=== PATIENT | female | born 1930 | race Caucasian/White ===

== ENCOUNTER 2017-05-12 23:20 | Inpatient (IN) | payer MEDICARE ==
[~2017-05-12] VITALS: Ht 144.8 cm; Wt 50.0 kg
[~2017-05-12 23:20] MED LIST: ACET325 PO; COMMODE 3:1; DOCU1CAP39 PO; ENOX40P SQ; FURO20 PO; MVI PO; POLY17S PO; TIMO.5%O LEFT EYE; WALKER ROLLING; WHEELCHAIR RENTAL RA
[2017-05-12] MEDS ORDERED: ONDANSETRON HCL 4 MG/2 ML VIAL IV PUSH ONE (23:30)
[2017-05-12 23:35] VITALS: BP 148/67; PULSE 68; RESP 17; TEMP 97.3; O2SAT 99
[2017-05-12] MEDS ORDERED: SODIUM CHLORIDE 0.9% FLUSH 10 ML FLUSH IVF PRN (23:45)
[2017-05-12] MEDS ORDERED: ONDANSETRON HCL 4 MG/2 ML VIAL IVP ONE (23:45)
[2017-05-12 23:48] VITALS: BP 146/61; PULSE 71; RESP 16; O2SAT 99
[2017-05-13] VITALS (8 sets, daily range): BP systolic 93–130; BP diastolic 57–65; PULSE 72–105; RESP 12–20; TEMP 96.1–97.6; O2SAT 98–100
[2017-05-13] LABS: BASOPHIL % 0.4 % (0.0-2.0); EOSINOPHIL # 0.2 TH/MM3 (0-0.4); EOSINOPHIL % 1.8 % (0.0-4.0); HEMO FLAGS DIFF FINAL; LYMPH % 19.9 % (9.0-44.0); MONO % 7.3 % (0.0-8.0); NEUT % 70.6 % (16.0-70.0); PLATELET COUNT 244 TH/MM3 (150-450); RED BLOOD COUNT 3.84 MIL/MM3 (4.00-5.30); WHITE BLOOD COUNT 9.9 TH/MM3 (4.0-11.0)
--- NOTE | 2017-05-13 00:04 | PD ---
HPI Chief Complaint: Fall Time Seen by Provider: 23:29 Travel History International Travel<30 days: No Contact w/Intl Traveler<30days: No Traveled to known affect area: No History of Present Illness HPI 86-year-old female presents to the emergency department by EMS transport from home after witnessed non-syncopal trip and fall just prior to arrival to the emergency department. Patient was at home getting out of her recliner chair to go the bathroom her daughter was at her side the patient had a trip and fall landing on her right hip. Patient's had previous left hip replacement. Patient complains of right hip pain. Patient is noted to have some soft tissue swelling and mild deformity of the right hip. There is no femur deformity involving the shaft of the femur or any swelling or tenderness noted at the knee. Patient states that she did not hit her head did not have loss of consciousness denies neck pain denies chest pain denies shortness of breath denies abdominal pain denies back pain denies arm pain. Patient is not certain of the details of her fall. Patient did receive morphine sulfate en route from the home to the hospital 4 mg IV 2 doses. Patient continues to complain of severe pain and received the final 2 mg dose of morphine sulfate IV by EMS in the exam room. Patient does complain of some nausea. She denies other concerns or complaints. Patient is not able to quantitate her pain. [facility] Past Medical History Narrative Medical Endometrial cancer left hip fracture with ORIF 2014 Dr Truong repair hysterectomy no tobacco use no alcohol use nursing notes reviewed Arthritis: No Asthma: No Autoimmune Disease: No Anxiety: No Depression: No Heart Rhythm Problems: No Cancer: Yes (endometrial) Cardiovascular Problems: No High Cholesterol: No Chemotherapy: No Chest Pain: No Congestive Heart Failure: No COPD: No Cerebrovascular Accident: No Diabetes: No Diminished Hearing: No Endocrine: No GERD: No Genitourinary: No Headaches: No Hiatal Hernia: No Immune Disorder: No Kidney Stones: No Musculoskeletal: Yes Neurologic: No Psychiatric: No Reproductive: Yes Respiratory: No Migraines: No Radiation Therapy: No Renal Failure: No Seizures: No Sickle Cell Disease: No Sleep Apnea: No Thyroid Disease: No Ulcer: No ?: Not Past Surgical History Abdominal Surgery: No AICD: No Arteriovenous Shunt: No Cardiac Surgery: No Ear Surgery: No Endocrine Surgery: No Eye Surgery: No Genitourinary Surgery: No Gynecologic Surgery: Yes (Hysterectomy six years ago) Hysterectomy: Yes Insulin Pump: No Oral Surgery: No Pacemaker: No Thoracic Surgery: No Social History Alcohol Use: No Tobacco Use: No Substance Use: No Allergies-Medications (Allergen,Severity, Reaction): Coded Allergies: No Known Allergies (Verified , 09/04/14) Reported Meds & Prescriptions Reported Meds & Active Scripts Active No Active Prescriptions or Reported Medications Review of Systems Except as stated in HPI: all other systems reviewed are Neg Physical Exam Narrative GENERAL: Frail elderly female in no acute distress no respiratory distress resting symptoms feel hours on the left decubitus position SKIN: Warm and dry. HEAD: Normocephalic. EYES: No scleral icterus. No injection or drainage. NECK: Supple, trachea midline. No JVD or lymphadenopathy. CARDIOVASCULAR: Regular rate and rhythm without murmurs, gallops, or rubs. RESPIRATORY: Breath sounds equal bilaterally. No accessory muscle use. GASTROINTESTINAL: Abdomen soft, non-tender, nondistended. MUSCULOSKELETAL: No cyanosis, or edema. Patient with right hip deformity dorsalis pedis pulse and posterior tibialis pulse 2+ to palpation left dorsalis pedis pulse and posterior tibialis pulses 2+ to palpation BACK: Nontender without obvious deformity. No CVA tenderness. Data Data Last Documented VS Vital Signs Date Time Temp Pulse Resp B/P (MAP) Pulse Ox O2 Delivery O2 Flow Rate FiO2 05/12/17 23:48 71 16 146/61 (89) 99 Nasal Cannula 2.00 05/12/17 23:35 97.3 Orders Orders Ondansetron Inj (Zofran Inj) (05/12/17 23:30) Electrocardiogram (05/12/17 23:34) Complete Blood Count With Diff (05/12/17 23:34) Comprehensive Metabolic Panel (05/12/17 23:34) Prothrombin Time / Inr (Pt) (05/12/17 23:34) Act Partial Throm Time (Ptt) (05/12/17 23:34) Urinalysis - C+S If Indicated (05/12/17 23:34) Type And Screen (05/12/17 23:34) Chest, Single Ap (05/12/17 23:34) Femur (Ap & Lat/2vws) (05/12/17 23:34) Iv Access Insert/Monitor (05/12/17 23:34) Oximetry (05/12/17 23:34) Ice/Cold Pack (05/12/17 23:34) Ecg Monitoring (05/12/17 23:34) Ondansetron Inj (Zofran Inj) (05/12/17 23:45) Sodium Chloride 0.9% Flush (Ns Flush) (05/12/17 23:45) Pelvis, Ap Only (Routine) (05/12/17 23:34) Urinary Catheter Insert/Apply (05/13/17 01:37) Labs Laboratory Tests Test 05/12/17 23:51 White Blood Count 9.9 TH/MM3 Red Blood Count 3.84 MIL/MM3 Hemoglobin 11.9 GM/DL Hematocrit 36.0 % Mean Corpuscular Volume 94.0 FL Mean Corpuscular Hemoglobin 31.0 PG Mean Corpuscular Hemoglobin Concent 33.0 % Red Cell Distribution Width 13.0 % Platelet Count 244 TH/MM3 Mean Platelet Volume 7.6 FL Neutrophils (%) (Auto) 70.6 % Lymphocytes (%) (Auto) 19.9 % Monocytes (%) (Auto) 7.3 % Eosinophils (%) (Auto) 1.8 % Basophils (%) (Auto) 0.4 % Neutrophils # (Auto) 7.0 TH/MM3 Lymphocytes # (Auto) 2.0 TH/MM3 Monocytes # (Auto) 0.7 TH/MM3 Eosinophils # (Auto) 0.2 TH/MM3 Basophils # (Auto) 0.0 TH/MM3 CBC Comment DIFF FINAL Differential Comment Prothrombin Time 10.2 SEC Prothromb Time International Ratio 0.9 RATIO Activated Partial Thromboplast Time 19.8 SEC Blood Urea Nitrogen 24 MG/DL Creatinine 0.60 MG/DL Random Glucose 147 MG/DL Total Protein 6.4 GM/DL Albumin 2.5 GM/DL Calcium Level 8.2 MG/DL Alkaline Phosphatase 91 U/L Aspartate Amino Transf (AST/SGOT) 20 U/L Alanine Aminotransferase (ALT/SGPT) 18 U/L Total Bilirubin 0.2 MG/DL Sodium Level 140 MEQ/L Potassium Level 4.3 MEQ/L Chloride Level 107 MEQ/L Carbon Dioxide Level 26.8 MEQ/L Anion Gap 6 MEQ/L Estimat Glomerular Filtration Rate 95 ML/MIN MDM Medical Decision Making Medical Screen Exam Complete: Yes Emergency Medical Condition: Yes Medical Record Reviewed: Yes Interpretation(s) EKG normal sinus rhythm first degree AV block rate 67 age-indeterminate septal infarct no acute ST elevation or injury pattern change noted Differential Diagnosis Mechanical fall, hip contusion hip dislocation hip fracture pelvic fracture femur fracture, arrhythmia, elect light disturbance, ACS, anemia Narrative Course IV access obtained patient placed on cardiac surgeon specimens collected and sent for resulting imaging studies ordered patient administered Zofran 4 mg IV Patient sent for imaging studies Right femur and pelvis x-ray identifies intertrochanteric fracture with valgus angulation Case discussed with on-call orthopedist who requests patient be admitted to medicine service with 5 pounds of De La Garza's traction Nothing by mouth and once urinalysis evaluated in order to cover with antibiotic Patient's daughter at bedside is aware of patient's need for admission and for surgical repair of the hip fracture. Physician Communication Physician Communication call placed to ortho, Dr. John, requests 5 pounds De La Garza's traction urinalysis and starting antibiotic if UTI nothing by mouth after midnight admitted to medicine service; call placed to [facility] Diagnosis Primary Impression: Closed right hip fracture Additional Impression: H/O pulmonary fibrosis Admitting Information Admitting Physician Requests: Admit Scripts No Active Prescriptions or Reported Meds Dia Ferrari MD May 13, 2017 00:04
[2017-05-13 00:21] LABS: APTT (PATIENT) 19.8 SEC (24.3-30.1); INTERNATIONAL NORMALIZED RATIO 0.9 RATIO; PROTHROMBIN TIME - PATIENT 10.2 SEC (9.8-11.6)
[2017-05-13 00:26] LABS: ALT (GPT) 18 U/L (10-53); ANION GAP 6 MEQ/L (5-15); AST (GOT) 20 U/L (15-37); BICARBONATE 26.8 MEQ/L (21.0-32.0); BLOOD UREA NITROGEN 24 MG/DL (7-18); CHLORIDE 107 MEQ/L (98-107); GLOMERULAR FILTRATION RATE 95 ML/MIN (>89); POTASSIUM 4.3 MEQ/L (3.5-5.1); SODIUM (NA) 140 MEQ/L (136-145)
[2017-05-13 00:29] LABS: ALKALINE PHOSPHATASE 91 U/L (45-117); TOTAL BILIRUBIN ADULT 0.2 MG/DL (0.2-1.0)
--- NOTE | 2017-05-13 01:06 | RADRPT ---
EXAM DATE/TIME: 05/13/2017 00:08 [facility] COMPARISON: CHEST SINGLE AP, October 17, 2014, 12:37. INDICATIONS : Chest pain post fall. MEDICAL HISTORY : None. SURGICAL HISTORY : None. ENCOUNTER: Initial ACUITY: 1 day PAIN SCORE: Non-responsive. LOCATION: Bilateral chest FINDINGS: There is underlying pulmonary fibrosis which has progressed since 2015. No focal dense consolidation. No effusion. Heart size enlarged. Tortuous aorta. Compression deformity again seen mid thoracic spin e. CONCLUSION: 1. Worsening pulmonary fibrosis compared with 2014. Compression deformity again seen in the mid thora cic spine. No pneumothorax or effusion. Joel Cullen MD on May 13, 2017 at 1:03 Board Certified Radiologist. This report was verified electronically.
--- NOTE | 2017-05-13 01:10 | RADRPT ---
EXAM DATE/TIME: 05/13/2017 00:07 [facility] COMPARISON: No previous studies available for comparison. INDICATIONS : Right femur pain post fall. MEDICAL HISTORY : None. SURGICAL HISTORY : None. ENCOUNTER: Initial ACUITY: 1 day PAIN SCORE: 10/10 LOCATION: Right femur. FINDINGS: Two view examination of the right femur demonstrates intertrochanteric fracture proximal right femur with varus angulation. Bones are osteopenic. CONCLUSION: 1. Intertrochanteric fracture proximal right femur with varus angulation. Joel Cullen MD on May 13, 2017 at 1:08 Board Certified Radiologist. This report was verified electronically.
--- NOTE | 2017-05-13 01:10 | RADRPT ---
EXAM DATE/TIME: 05/13/2017 00:06 [facility] COMPARISON: No previous studies available for comparison. INDICATIONS : Pelvis pain post fall. MEDICAL HISTORY : None. SURGICAL HISTORY : Left hip trochnail. ENCOUNTER: Initial ACUITY: 1 day PAIN SCORE: 10/10 LOCATION: Right pelvis. FINDINGS: There is an intertrochanteric fracture of the proximal right femur with varus angulation. There is pr evious ana fixation of the left proximal femur. CONCLUSION: 1. Intertrochanteric fracture proximal right femur with varus angulation. Osteopenia. Joel Cullen MD on May 13, 2017 at 1:08 Board Certified Radiologist. This report was verified electronically.
[2017-05-13] MEDS ORDERED: NALOXONE HCL 0.4 MG/ML AMP IV PRN ×2 (02:00)
[2017-05-13] MEDS ORDERED: SENNOSIDES 8.6 MG TAB PO PRN (02:00)
[2017-05-13] MEDS ORDERED: SODIUM CHLORIDE 0.9% FLUSH 10 ML FLUSH IV FLUSH PRN ×2 (02:00)
[2017-05-13] MEDS ORDERED: SODIUM CHLORIDE 0.9% FLUSH 10 ML FLUSH IVF PRN (02:00)
[2017-05-13] MEDS ORDERED: LACTULOSE SYRUP 20 GM/30 ML CUP PO PRN (02:00)
[2017-05-13] MEDS ORDERED: BISACODYL 10 MG SUPP RECTAL PRN (02:00)
[2017-05-13] MEDS ORDERED: MAGNESIUM HYDROXIDE SUSP 30 ML CUP PO PRN (02:00)
[2017-05-13 02:09] LABS: BLOOD, URINE NEG (NEG); COMMENT (UR) CATH-CULT NOT IND; CULTURE IF INDICATED CATH CULTURE NOT IND; GLUCOSE,URINE NEG (NEG); KETONE, URINE NEG (NEG); MUCUS URINE FEW /lpf (OCC); NITRITE,URINE NEG (NEG); SQUAMOUS EPITHELIAL CELL URINE <1 /hpf (0-5); URINE COLOR YELLOW (YELLW/STRAW)
[2017-05-13] MEDS ORDERED: SODIUM CHLORID 0.9% 500 ML IV PRN (04:00)
[2017-05-13] MEDS ORDERED: POVIDONE IODINE 5% (ANTISEPSIS KIT) 4 APPLICATIONS EACH NARE PRN (04:00)
[2017-05-13] MEDS ORDERED: LACTATED RINGER'S 1000 ML IV PRN (04:00)
[2017-05-13] MEDS ORDERED: CHLORHEXIDINE GLUCONATE 2 % 1 PACK (2 CLOTHS) TOPICAL PRN (04:00)
[2017-05-13] MEDS ORDERED: INSULIN HUMAN REGULAR 1,000 UNITS/10 ML VIAL SQ PRN (04:00)
[2017-05-13] MEDS: DOCUSATE SODIUM 50 MG/SENNA 8.6 MG TAB PO SCH ×2 (08:22→20:24)
[2017-05-13] MEDS: SODIUM CHLORIDE 0.9% FLUSH 10 ML FLUSH IV FLUSH SCH ×2 (08:22→17:24)
--- NOTE | 2017-05-13 08:24 | EKG ---
Date Performed: 05/12/2017 Time Performed: 23:56:14 PTAGE: 86 years EKG: Sinus rhythm WITH FIRST DEGREE AV BLOCK LEFT ATRIAL ENLARGEMENT ABNORMAL ECG PREVIOUS TRACING : 09/28/2014 22.31 No significant change from previous tracing noted. DOCTOR: Yoni Mcclain Interpretating Date/Time 05/13/2017 08:22:30
[2017-05-13] MEDS ORDERED: SODIUM CHLORIDE 0.9% FLUSH 10 ML FLUSH IV FLUSH SCH ×2 (09:00)
--- NOTE | 2017-05-13 09:31 | HHI.HP ---
[facility] No Primary Care Physician Admission Diagnosis R hip fracture; h/o pulmonary fibrosis Diagnoses: Travel History International Travel<30 Days: No Contact w/Intl Traveler <30 Da: No Traveled to Known Affected Are: No History of Present Illness Mrs. Amin is an 86-year-old female. She is in the hospital today after having a right hip fracture secondary to fall. When seen her pain is not yet controlled. She has no other complaints other than pain. Her only medical condition is history of pulmonary fibrosis. She does not have a history of stroke, coronary artery disease, diabetes, or dementia. In the past she has had a left hip surgery approximately 2 years ago secondary to fall and hip fracture. She's also had a hysterectomy in 2007. She smoked for a short duration approximately 65 years ago. With her prior to surgery she did not have any complications from anesthesia or postop. Review of Systems Constitutional: DENIES: Fatigue, Fever, Weight loss, Chills Eyes: DENIES: Blurred vision, Diplopia, Eye inflammation Ears, nose, mouth, throat: DENIES: Tinnitus, Hearing loss, Vertigo Respiratory: DENIES: Apneas, Cough, Wheezing, Shortness of breath Cardiovascular: DENIES: Chest pain, Palpitations, Syncope Gastrointestinal: DENIES: Abdominal pain, Black stools, Bloody stools Musculoskeletal: COMPLAINS OF: Joint pain, DENIES: Muscle aches, Stiffness, Back pain Integumentary: DENIES: Abnormal pigmentation Hematologic/lymphatic: DENIES: Bruising Immunologic/allergic: DENIES: Eczema Neurologic: DENIES: Abnormal gait Psychiatric: DENIES: Anxiety, Confusion, Mood changes Past Family Social History Past Medical History Pulmonary fibrosis Past Surgical History Hysterectomy in 2007 Left hip surgery in 2014 secondary to fracture Reported Medications Reported Meds & Active Scripts Active No Active Prescriptions or Reported Medications Allergies: Coded Allergies: No Known Allergies (Verified , 09/04/14) Active Ordered Medications Administered Medications Medications (Trade) Dose Ordered Sig/Toby Route PRN Reason Start Time Stop Time Status Last Admin Dose Admin Sodium Chloride (NS Flush) 2 ml BID IV FLUSH 05/13/17 09:00 05/13/17 08:22 Family History Colon cancer in patient's mother Social History No history of drug abuse No history of alcohol abuse Distant history of smoking 65 years ago, short duration low-volume Physical Exam Vital Signs Vital Signs Date Time Temp Pulse Resp B/P (MAP) Pulse Ox O2 Delivery O2 Flow Rate FiO2 05/13/17 05:56 Nasal Cannula 2.00 05/13/17 04:30 97.0 72 19 121/65 (83) 98 05/13/17 03:46 05/13/17 03:04 77 12 130/62 (84) 99 Room Air 05/12/17 23:48 99 Nasal Cannula 2.00 05/12/17 23:48 71 16 146/61 (89) 99 Nasal Cannula 2.00 05/12/17 23:44 70 17 99 Room Air 2.00 05/12/17 23:35 97.3 68 17 148/67 (94) 99 Physical Exam GENERAL: NAD, A&Ox3 HEAD: Normocephalic. NECK: Supple, trachea midline. No lymphadenopathy. EYES: No scleral icterus. No injection or drainage. CARDIOVASCULAR: Regular rate and rhythm without murmurs, gallops, or rubs. RESPIRATORY: Breath sounds equal bilaterally. No accessory muscle use. GASTROINTESTINAL: Abdomen soft, non-tender, nondistended. MUSCULOSKELETAL: No cyanosis, or edema. Tender right hip, leg in traction SKIN: Warm and dry. NEURO: No focal neurological deficitis. Laboratory Laboratory Tests Test 05/12/17 23:51 05/13/17 01:45 White Blood Count 9.9 Red Blood Count 3.84 Hemoglobin 11.9 Hematocrit 36.0 Mean Corpuscular Volume 94.0 Mean Corpuscular Hemoglobin 31.0 Mean Corpuscular Hemoglobin Concent 33.0 Red Cell Distribution Width 13.0 Platelet Count 244 Mean Platelet Volume 7.6 Neutrophils (%) (Auto) 70.6 Lymphocytes (%) (Auto) 19.9 Monocytes (%) (Auto) 7.3 Eosinophils (%) (Auto) 1.8 Basophils (%) (Auto) 0.4 Neutrophils # (Auto) 7.0 Lymphocytes # (Auto) 2.0 Monocytes # (Auto) 0.7 Eosinophils # (Auto) 0.2 Basophils # (Auto) 0.0 CBC Comment DIFF FINAL Differential Comment Prothrombin Time 10.2 Prothromb Time International Ratio 0.9 Activated Partial Thromboplast Time 19.8 Blood Urea Nitrogen 24 Creatinine 0.60 Random Glucose 147 Total Protein 6.4 Albumin 2.5 Calcium Level 8.2 Alkaline Phosphatase 91 Aspartate Amino Transf (AST/SGOT) 20 Alanine Aminotransferase (ALT/SGPT) 18 Total Bilirubin 0.2 Sodium Level 140 Potassium Level 4.3 Chloride Level 107 Carbon Dioxide Level 26.8 Anion Gap 6 Estimat Glomerular Filtration Rate 95 Urine Color YELLOW Urine Turbidity CLEAR Urine pH 5.0 Urine Specific Anabel 1.025 Urine Protein TRACE Urine Glucose (UA) NEG Urine Ketones NEG Urine Occult Blood NEG Urine Nitrite NEG Urine Bilirubin NEG Urine Urobilinogen LESS THAN 2.0 Urine Leukocyte Esterase NEG Urine RBC 6 Urine WBC 2 Urine Squamous Epithelial Cells <1 Urine Mucus FEW Microscopic Urinalysis Comment CATH-CULT NOT IND Result Diagram: 05/12/17 2351 05/12/172350 Imaging Last Impressions Pelvis X-Ray 05/12/172333 Signed Impressions: Service Date/Time: April 00:06 - CONCLUSION: 1. Intertrochanteric fracture proximal right femur with varus angulation. Osteopenia. Joel Cullen MD Femur X-Ray 05/12/172333 Signed Impressions: Service Date/Time: April 00:07 - CONCLUSION: 1. Intertrochanteric fracture proximal right femur with varus angulation. Joel Cullen MD Chest X-Ray 05/12/172333 Signed Impressions: Service Date/Time: April 00:08 - CONCLUSION: 1. Worsening pulmonary fibrosis compared with 2015. Compression deformity again seen in the mid thoracic spine. No pneumothorax or effusion. Jeol Cullen MD Capnasiri VTE Risk Assessment Caprini VTE Risk Assessment: Mod/High Risk (score >= 2) VTE Pharm Contraindication: High risk for bleeding Caprini Risk Assessment Model Point Value = 1 Point Value = 2 Point Value = 3 Point Value = 5 Age 41-60 Minor surgery BMI > 25 kg/m2 Swollen legs Varicose veins or History of unexplained or recurrent spontaneous Oral contraceptives or hormone replacement Sepsis (< 1 month) Serious lung disease, including pneumonia (< 1 month) Abnormal pulmonary function Acute myocardial infarction Congestive heart failure (< 1 month) History of inflammatory bowel disease Medical patient at bed rest Age 61-74 Arthroscopic surgery Major open surgery (> 45 min) Laparoscopic surgery (> 45 min) Malignancy Confined to bed (> 72 hours) Immobilizing plaster cast Central venous access Age >= 75 History of VTE Family history of VTE Factor V Leiden Prothrombin [id number] Lupus anticoagulant Anticardiolipin antibodies Elevated serum homocysteine Heparin-induced thrombocytopenia Other congenital or acquired thrombophilia Stroke (< 1 month) Elective arthroplasty Hip, pelvis, or leg fracture Acute spinal cord injury (< 1 month) Prophylaxis Regimen Total Risk Factor Score Risk Level Prophylaxis Regimen 0-1 Low Early ambulation 2 Moderate Order ONE of the following: *Sequential Compression Device (SCD) *Heparin 5000 units SQ BID 3-4 Higher Order ONE of the following medications: *Heparin 5000 units SQ TID *Enoxaparin/Lovenox 40 mg SQ daily (WT < 150 kg, CrCl > 30 mL/min) *Enoxaparin/Lovenox 30 mg SQ daily (WT < 150 kg, CrCl > 10-29 mL/min) *Enoxaparin/Lovenox 30 mg SQ BID (WT < 150 kg, CrCl > 30 mL/min) AND/OR *Sequential Compression Device (SCD) 5 or more Highest Order ONE of the following medications: *Heparin 5000 units SQ TID (Preferred with Epidurals) *Enoxaparin/Lovenox 40 mg SQ daily (WT < 150 kg, CrCl > 30 mL/min) *Enoxaparin/Lovenox 30 mg SQ daily (WT < 150 kg, CrCl > 10-29 mL/min) *Enoxaparin/Lovenox 30 mg SQ BID (WT < 150 kg, CrCl > 30 mL/min) AND *Sequential Compression Device (SCD) Assessment and Plan Problem List: (1) Closed right hip fracture ICD Code: S72.001A - Fracture of unspecified part of neck of right femur, initial encounter for closed fracture Status: Acute (2) H/O pulmonary fibrosis ICD Code: Z87.09 - Personal history of other diseases of the respiratory system Status: Acute Assessment and Plan Assessment and plan 86-year-old female admitted secondary to fracture of right hip secondary to fall Right hip fracture Ortho consulted IV morphine for pain No PT till patient stabilized Surgical repair anticipated Primary surgical risks are patient's age and history of pulmonary fibrosis, no other risks Monitor CBC History of pulmonary fibrosis Patient takes no treatments for this She is not dependent on oxygen or breathing treatments No exacerbation respiratory status Follow clinically DVT prophylaxis SCDs for now given likely pending surgery Physician Certification 2 Midnight Certification Type: Admission for Inpatient Services Order for Inpatient Services The services are ordered in accordance with Medicare regulations or non- Medicare payer requirements, as applicable. In the case of services not specified as inpatient-only, they are appropriately provided as inpatient services in accordance with the 2-midnight benchmark. Estimated LOS (days): 3 days is the estimated time the patient will need to remain in the hospital, assuming treatment plan goals are met and no additional complications. Post-Hospital Plan: SNF Tahir Gomez MD May 13, 2017 09:31
[2017-05-13] MEDS ORDERED: MORPHINE SULFATE 4 MG/ML INJ IV PUSH PRN (10:00)
[2017-05-13] MEDS ORDERED: ONDANSETRON HCL 4 MG/2 ML VIAL IV PUSH ONE (12:00)
[2017-05-13] MEDS ORDERED: LACTATED RINGER'S 1000 ML INJ 1,000 ML IV ONE (12:00)
[2017-05-13] MEDS ORDERED: PHENYLEPH/NS 1000 MCG/10 ML SYR IV ONE (12:00)
[2017-05-13] MEDS ORDERED: PROPOFOL 200 MG/20 ML AMP IV ONE (12:00)
[2017-05-13] MEDS ORDERED: ePHEDrine/NS 25 MG/5 ML SYR IV ONE (12:00)
[2017-05-13] MEDS ORDERED: GENTAMICIN SULFATE 80 MG/2 ML VIAL ONE (15:24)
[2017-05-13] MEDS ORDERED: ACETAMINOPHEN 1000 MG/100 ML 100 ML IV ONE (17:01)
[2017-05-13] MEDS ORDERED: ceFAZolin INJ 1,000 MG VIAL IV ONE (17:34)
--- NOTE | 2017-05-13 18:11 | PD.OP ---
cc: Reji Rush MD Operative Report Date of Surgery: May 13, 2017 Preoperative Diagnosis: Right intertrochanteric/subtrochanteric hip fracture Postoperative Diagnosis: Same Procedure: Open treatment internal fixation right hip fracture with intramedullary ana Anesthesia: Gen. Surgeon: Reji Rush Engine Tester(s): TERESE Rodrigues Operation and Findings: EBL: 100 cc INDICATION: This patient is an 86-year-old female who fell yesterday sustaining the above fracture. She is felt to be a candidate for surgical treatment NOTE: Betzy Rodrigues PA-C was present for the entire surgical procedure as my payroll administrative assistant. In my medical opinion her skill and care was necessary for proper management of this patient PROCEDURE: The patient was brought to the operating room and anesthetized in the supine position. He was placed on the fracture table with the right leg held extended. The opposite leg was in the well leg kearney. The hip fracture was reduced anatomically. The hip and leg was scrubbed with alcohol followed by Hibiclens followed by ChloraPrep. A timeout was done and antibiotics were given within 1 hour time window. A longitudinal incision was made over the lateral aspect of the proximal femur. Dissection continued down to the top of the greater trochanter. A cannulated awl was placed down through the top of the greater trochanter followed by placement of the guidepin along the shaft of the femur. This was reamed distally to 1 mm greater than the ana size and proximally to 17 mm. A separate incision was made laterally followed by placement of guidepin to the proper position of the femoral head. This is reamed and tapped in the proper length was placed up into the proper location. A single transverse screw was placed distally through the ana. Intraoperative x-rays were obtained. Alignment was satisfactory. No complication was noted. The wound was irrigated copiously. Hemostasis was controlled. The fascia was closed with interrupted Vicryl suture, subcutaneous tissue 2-0 Vicryl suture, skin with running intradermal 3-0 Vicryl followed by Steri-Strips and benzoin. A sterile dressing was applied The patient was awakened and taken to the recovery room in satisfactory condition. FINDINGS: There was a moderately comminuted intratrochanteric subtrochanteric fracture of the right hip. Final alignment was very satisfactory. No complication was appreciated. Reji Rush MD May 13, 2017 18:11
--- NOTE | 2017-05-13 18:14 | PD.CONS ---
cc: Reji Rush MD HPI Service Orthopedic Surgeons Consult Requested By Primary Care Physician No Primary Care Physician Admission Diagnosis R hip fracture; h/o pulmonary fibrosis Diagnoses: (1) Closed right hip fracture (2) H/O pulmonary fibrosis Chief Complaint: Pain in the right hip History of Present Illness This patient is an 86-year-old female who fell yesterday. She was seen in the emergency room. X-rays revealed evidence of a mildly comminuted varus fracture of the right proximal femur. I have been asked see her in consultation regarding the same Past Family Social History Past Medical History Pulmonary fibrosis Past Surgical History Hysterectomy in 2007 Left hip surgery in 2014 secondary to fracture Allergies: Coded Allergies: No Known Allergies (Verified , 09/04/14) Active Ordered Medications Current Medications Medications (Trade) Dose Ordered Sig/Toby Route Start Time Stop Time Status Last Admin (NS Flush) 2 ml UNSCH PRN IV FLUSH 05/13/17 02:00 (NS Flush) 2 ml BID IV FLUSH 05/13/17 09:00 05/13/17 17:24 (Narcan Inj) 0.4 mg UNSCH PRN IV 05/13/17 02:00 (Keely-Colace) 1 tab BID PO 05/13/17 09:00 (Milk Of Magnesia Liq) 30 ml Q12H PRN PO 05/13/17 02:00 (Senokot) 17.2 mg Q12H PRN PO 05/13/17 02:00 (Dulcolax Supp) 10 mg DAILY PRN RECTAL 05/13/17 02:00 (Lactulose Liq) 30 ml DAILY PRN PO 05/13/17 02:00 Lactated Ringer's 1,000 ml @ 30 mls/hr Q24H PRN IV 05/13/17 04:00 05/16/17 03:59 Sodium Chloride 500 ml @ 30 mls/hr [id number] PRN IV 05/13/17 04:00 05/16/17 03:59 (Betadine 5% Antisepsis Kit) 1 applic FARM MARKETER PRN EACH NARE 05/13/17 04:00 05/16/17 03:59 (Chlorhexidine 2% Cloth) 3 pack FARM MARKETER PRN TOPICAL 05/13/17 04:00 05/16/17 03:59 (NovoLIN R INJ) See Protocol Table ... FARM MARKETER PRN SQ 05/13/17 04:00 05/16/17 03:59 (Morphine Inj) 2 mg Q3H PRN IV PUSH 05/13/17 10:00 Reported Meds & Active Scripts Active No Active Prescriptions or Reported Medications Family History Colon cancer in patient's mother Social History No history of drug abuse No history of alcohol abuse Distant history of smoking 65 years ago, short duration low-volume Physical Exam Vital Signs Vital Signs Date Time Temp Pulse Resp B/P (MAP) Pulse Ox O2 Delivery O2 Flow Rate FiO2 05/13/17 15:00 96.1 102 18 123/57 (79) 98 05/13/17 12:00 96.9 101 18 93/61 (72) 100 05/13/17 10:05 98 Nasal Cannula 2.00 05/13/17 08:00 96.7 94 18 106/59 (75) 98 05/13/17 05:56 Nasal Cannula 2.00 05/13/17 04:30 97.0 72 19 121/65 (83) 98 05/13/17 03:46 05/13/17 03:04 77 12 130/62 (84) 99 Room Air 05/12/17 23:48 99 Nasal Cannula 2.00 05/12/17 23:48 71 16 146/61 (89) 99 Nasal Cannula 2.00 05/12/17 23:44 70 17 99 Room Air 2.00 05/12/17 23:35 97.3 68 17 148/67 (94) 99 Physical Exam She is comfortable in bed. Her daughter is at the bedside. HEENT: Normocephalic atraumatic pupils equal round reactive. NECK: Supple. No abnormal masses. Full range of motion. CHEST: Clear to auscultation with no rales or rhonchi's or wheezes. HEART: Regular rate and rhythm. No murmurs. ABDOMEN: Soft, nontender, no masses. Normal active bowel sounds. GENITOURINARY: Deferred. Right hip is shortened. Moderate swelling. She is in [place]'s traction. She wiggles toes. No tenderness of the knee or ankle Laboratory Laboratory Tests Test 05/12/17 23:51 05/13/17 01:45 White Blood Count 9.9 Red Blood Count 3.84 Hemoglobin 11.9 Hematocrit 36.0 Mean Corpuscular Volume 94.0 Mean Corpuscular Hemoglobin 31.0 Mean Corpuscular Hemoglobin Concent 33.0 Red Cell Distribution Width 13.0 Platelet Count 244 Mean Platelet Volume 7.6 Neutrophils (%) (Auto) 70.6 Lymphocytes (%) (Auto) 19.9 Monocytes (%) (Auto) 7.3 Eosinophils (%) (Auto) 1.8 Basophils (%) (Auto) 0.4 Neutrophils # (Auto) 7.0 Lymphocytes # (Auto) 2.0 Monocytes # (Auto) 0.7 Eosinophils # (Auto) 0.2 Basophils # (Auto) 0.0 CBC Comment DIFF FINAL Differential Comment Prothrombin Time 10.2 Prothromb Time International Ratio 0.9 Activated Partial Thromboplast Time 19.8 Blood Urea Nitrogen 24 Creatinine 0.60 Random Glucose 147 Total Protein 6.4 Albumin 2.5 Calcium Level 8.2 Alkaline Phosphatase 91 Aspartate Amino Transf (AST/SGOT) 20 Alanine Aminotransferase (ALT/SGPT) 18 Total Bilirubin 0.2 Sodium Level 140 Potassium Level 4.3 Chloride Level 107 Carbon Dioxide Level 26.8 Anion Gap 6 Estimat Glomerular Filtration Rate 95 Urine Color YELLOW Urine Turbidity CLEAR Urine pH 5.0 Urine Specific [place] 1.025 Urine Protein TRACE Urine Glucose (UA) NEG Urine Ketones NEG Urine Occult Blood NEG Urine Nitrite NEG Urine Bilirubin NEG Urine Urobilinogen LESS THAN 2.0 Urine Leukocyte Esterase NEG Urine RBC 6 Urine WBC 2 Urine Squamous Epithelial Cells <1 Urine Mucus FEW Microscopic Urinalysis Comment CATH-CULT NOT IND Result Diagram: 05/12/171 05/12/171 Imaging X-rays were reviewed and reviewed of the radiologist's interpretation. They show evidence of a comminuted varus displaced fracture of the right proximal femur in the region of the intertrochanteric subtrochanteric region. Moderate to advanced osteopenia is suspect. Assessment & Plan Assessment and Plan Fracture right hip, peritrochanteric. PLAN: Nothing by mouth Full consent was obtained with the patient and her daughter Surgery: Open treatment internal fixation right hip fracture with intramedullary ana. Surgery will be performed today if time is available and she is cleared for surgical treatment Reji Rush MD May 13, 2017 18:14
[2017-05-13] MEDS ORDERED: SODIUM CHLORIDE 0.9% FLUSH 5 ML FLUSH IVF PRN (18:15)
[2017-05-13] MEDS ORDERED: MISCELLANEOUS PHARMACY INFORMATION XX ONE (18:15)
[2017-05-13] MEDS ORDERED: ACETAMINOPHEN/HYDROcodone 325 MG/7.5 MG TAB PO PRN (18:15)
[2017-05-13] MEDS ORDERED: MISCELLANEOUS NURSING INFORMATION XX PRN (18:15)
[2017-05-13] MEDS ORDERED: ONDANSETRON HCL 4 MG/2 ML VIAL IVP PRN (18:15)
[2017-05-13] MEDS ORDERED: MORPHINE SULFATE 8 MG/ML INJ IM PRN (18:15)
[2017-05-13] MEDS ORDERED: Post-op Orders (for Pharmacy) MISC XX ONE (18:15)
[2017-05-13] MEDS ORDERED: ALUMINUM/MAGNESIUM/SIMETH 30 ML CUP PO PRN (18:15)
[2017-05-13] MEDS ORDERED: TEMAZEPAM 15 MG CAP PO PRN (18:15)
[2017-05-13] MEDS ORDERED: ENOX30P SQ (18:22)
[2017-05-13] MEDS ORDERED: NORC5TAB PO (18:22)
--- NOTE | 2017-05-13 18:34 | RADRPT ---
EXAM DATE/TIME: 05/13/2017 17:53 [facility] COMPARISON: FEMUR RIGHT (AP & LAT/2VWS), May 13, 2017, 0:07. INDICATIONS : Right hip troch nail. MEDICAL HISTORY : None. SURGICAL HISTORY : None. ENCOUNTER: Subsequent ACUITY: 1 day PAIN SCORE: Non-responsive. LOCATION: Right hip FINDINGS: 4 spot fluoroscopic images obtained in the operating room during a procedure demonstrates an antegrad e intramedullary ana placed in the proximal femur with a proximal femoral head and neck screw and a d istal interlocking screw. There is improved anatomic alignment. CONCLUSION: Improved anatomic alignment following right femur ORIF. Fredy Lala MD on May 13, 2017 at 18:31 Board Certified Radiologist. This report was verified electronically.
[2017-05-13] MEDS ORDERED: fentaNYL CITRATE 250 MCG/5 ML AMP ONE (18:39)
[2017-05-13] MEDS: LACTATED RINGER'S 1000 ML INJ 1,000 ML IV SCH (20:00)
[2017-05-13] MEDS: MAGNESIUM HYDROXIDE SUSP 30 ML CUP PO SCH (20:24)
[2017-05-13] MEDS: SODIUM CHLORIDE 0.9% FLUSH 5 ML FLUSH IVF SCH (20:25)
[2017-05-13] MEDS: SENNOSIDES 8.6 MG TAB PO SCH (20:39)
[2017-05-13] MEDS ORDERED: DO NOT ADM ANY ANTICOAGULANT DRUGS PRN (21:00)
[2017-05-13] MEDS: ACETAMINOPHEN/HYDROcodone 325 MG/7.5 MG TAB PO PRN (21:52)
[2017-05-14] VITALS (7 sets, daily range): BP systolic 75–109; BP diastolic 47–65; PULSE 97–121; RESP 16–23; TEMP 96.4–98.5; O2SAT 93–100
[2017-05-14] MEDS: ACETAMINOPHEN/HYDROcodone 325 MG/7.5 MG TAB PO PRN ×2 (06:14→12:17)
[2017-05-14] MEDS: ENOXAPARIN SODIUM 30 MG/0.3 ML SYRINGE SQ SCH (06:14)
[2017-05-14] MEDS: LACTATED RINGER'S 1000 ML INJ 1,000 ML IV SCH ×2 (06:17→19:58)
[2017-05-14 07:19] LABS: HEMATOCRIT 26.5 % (35.0-46.0); MEAN CELL VOLUME 95.1 FL (80.0-100.0); MEAN CORPUSCULAR HEMOGLOBIN 31.8 PG (27.0-34.0); MEAN CORPUSCULAR HGB CONC 33.5 % (32.0-36.0); PLATELET COUNT 151 TH/MM3 (150-450); RED BLOOD COUNT 2.79 MIL/MM3 (4.00-5.30); RED CELL DISTRIBUTION WIDTH 12.6 % (11.6-17.2); REVIEW FLAG FINAL; WHITE BLOOD COUNT 11.8 TH/MM3 (4.0-11.0)
[2017-05-14 07:34] LABS: BICARBONATE 26.6 MEQ/L (21.0-32.0); POTASSIUM 4.5 MEQ/L (3.5-5.1)
--- NOTE | 2017-05-14 07:57 | PD.ORT.PN ---
Subjective Subjective Remarks No complaints. Comfortably resting in bed. Objective Vitals Vital Signs Date Time Temp Pulse Resp B/P (MAP) Pulse Ox O2 Delivery O2 Flow Rate FiO2 05/14/17 06:50 98.0 121 23 109/65 (80) 95 05/14/17 00:55 97.2 108 20 87/52 (64) 100 05/13/17 20:55 97.6 105 20 100/59 (73) 100 05/13/17 20:20 93 05/13/17 20:20 100 Nasal Cannula 2.00 05/13/17 19:30 97.4 86 22 117/59 (78) 100 Nasal Cannula 2 05/13/17 19:15 85 23 117/57 (77) 100 Nasal Cannula 2 05/13/17 19:00 87 23 119/60 (79) 100 Nasal Cannula 2 05/13/17 18:45 87 17 134/63 (86) 100 Nasal Cannula 2 05/13/17 18:35 97.6 94 17 134/71 (92) 100 Nasal Cannula 2 05/13/17 15:00 96.1 102 18 123/57 (79) 98 05/13/17 12:00 96.9 101 18 93/61 (72) 100 05/13/17 10:05 98 Nasal Cannula 2.00 05/13/17 08:00 96.7 94 18 106/59 (75) 98 I/O 05/13/17 05/13/17 05/13/17 05/14/17 05/14/17 05/14/17 06:59 14:59 22:59 06:59 14:59 22:59 Intake Total 0 ml 1145 ml 1017 ml Output Total 200 ml 1140 ml 300 ml Balance -200 ml 5 ml 717 ml Intake Oral 0 ml 120 ml IV Total 25 ml 1017 ml Other 1000 ml Output Urine Total 200 ml 40 ml 300 ml Estimated Blood Loss 100 ml Other 1000 ml # Bowel Movements 0 Result Diagram: 05/14/17 0653 05/14/17 0653 Objective Remarks Dressing dry. No abnormal swelling. No calf tenderness. Neuro exam normal Assessment & Plan Ortho Post Op Day #: 1 Problem List: Assessment and Plan Fracture right hip, peritrochanteric. Surgery: ORIF right hip with trochanteric nail: POD #1 PLAN: Stable orthopedically. Toe touch weightbearing. No dressing change. Lovenox for anticoagulation. [place] for pain. Prescriptions for discharge written. On medical service. Discharge when medically clear. Probably SNF on Wednesday or Wednesday. Follow-up in 2 weeks Reji Rush MD May 14, 2017 07:57
[2017-05-14] MEDS: DOCUSATE SODIUM 50 MG/SENNA 8.6 MG TAB PO SCH ×2 (08:04→19:58)
[2017-05-14] MEDS: MAGNESIUM HYDROXIDE SUSP 30 ML CUP PO SCH ×2 (08:05→19:58)
[2017-05-14] MEDS: SODIUM CHLORIDE 0.9% FLUSH 5 ML FLUSH IVF SCH ×2 (09:00→19:58)
[2017-05-14] MEDS ORDERED: INFLUENZA VIRUS VACCINE (QUADRIVALENT) 0.5 ML SYR IM ONE (10:00)
[2017-05-14] MEDS ORDERED: MIDODRINE 5 MG TAB PO ONE ×2 (14:30→22:15)
[2017-05-14] MEDS ORDERED: SODIUM CHLORID 0.9% 500 ML INJ 500 ML IV ONE (14:30)
--- NOTE | 2017-05-14 14:34 | HHI.PR ---
Subjective Remarks Patient is postop now. Hemoglobin level is 8.9 this morning. No signs of active bleeding. Blood pressure is low. Objective Vital Signs Date Time Temp Pulse Resp B/P (MAP) Pulse Ox O2 Delivery O2 Flow Rate FiO2 05/14/17 12:00 96.4 110 20 75/47 (56) 93 05/14/17 08:05 16 05/14/17 08:00 98.5 120 20 80/47 (58) 93 05/14/17 06:50 98.0 121 23 109/65 (80) 95 05/14/17 00:55 97.2 108 20 87/52 (64) 100 05/13/17 20:55 97.6 105 20 100/59 (73) 100 05/13/17 20:20 93 05/13/17 20:20 100 Nasal Cannula 2.00 05/13/17 19:30 97.4 86 22 117/59 (78) 100 Nasal Cannula 2 05/13/17 19:15 85 23 117/57 (77) 100 Nasal Cannula 2 05/13/17 19:00 87 23 119/60 (79) 100 Nasal Cannula 2 05/13/17 18:45 87 17 134/63 (86) 100 Nasal Cannula 2 05/13/17 18:35 97.6 94 17 134/71 (92) 100 Nasal Cannula 2 05/13/17 15:00 96.1 102 18 123/57 (79) 98 I/O 05/13/17 05/13/17 05/13/17 05/14/17 05/14/17 05/14/17 07:00 15:00 23:00 07:00 15:00 23:00 Intake Total 0 ml 1145 ml 1017 ml Output Total 200 ml 1140 ml 300 ml Balance -200 ml 5 ml 717 ml Intake Oral 0 ml 120 ml IV Total 25 ml 1017 ml Other 1000 ml Output Urine Total 200 ml 40 ml 300 ml Estimated Blood Loss 100 ml Other 1000 ml # Bowel Movements 0 Result Diagram: 05/14/1765205/14/17 0653 Objective Remarks GENERAL: NAD, A&Ox3 HEAD: Normocephalic. NECK: Supple, trachea midline. No lymphadenopathy. EYES: No scleral icterus. No injection or drainage. CARDIOVASCULAR: Regular rate and rhythm without murmurs, gallops, or rubs. RESPIRATORY: Breath sounds equal bilaterally. No accessory muscle use. GASTROINTESTINAL: Abdomen soft, non-tender, nondistended. MUSCULOSKELETAL: No cyanosis, or edema. Bandage a right hip SKIN: Warm and dry. NEURO: No focal neurological deficitis. A/P Problem List: (1) Closed right hip fracture ICD Code: S72.001A - Fracture of unspecified part of neck of right femur, initial encounter for closed fracture Status: Acute (2) H/O pulmonary fibrosis ICD Code: Z87.09 - Personal history of other diseases of the respiratory system Status: Acute (3) Status post fall ICD Code: Z91.89 - Status post fall Status: Acute (4) Impaired mobility ICD Code: Z74.09 - Impaired mobility Status: Acute (5) Impaired activities of daily living ICD Code: R53.81 - Impaired activities of daily living Status: Acute Assessment and Plan Assessment and plan 86-year-old female admitted secondary to fracture of right hip secondary to fall. Now postop repair. Blood pressures look today. 500 mL fluid boluses provided. Patient will also be started on midodrine 5 mg 3 times a day as the etiology for her hypotension is most likely related to narcotic effect. Repeat hemoglobin level to ensure that a.m. value is not overestimated as blood loss anemia could also contribute to hypotension. Right hip fracture Ortho consulted Continue pain treatments as needed Continue physical therapy Surgical repair completed Monitor CBC History of pulmonary fibrosis Patient takes no treatments for this She is not dependent on oxygen or breathing treatments No exacerbation respiratory status Follow clinically DVT prophylaxis SCDs for now given likely pending surgery Tahir Gomez MD May 14, 2017 14:34
--- NOTE | 2017-05-14 16:09 | OTSOAPIP ---
TIME SESSION COMPLETED: 1430 TREATMENT TIME: 0 MINS. CHART REVIEWED. ATTEMPTED TO SEE FOR OT EVALUATION, HOWEVER PT SOUNDLY SLEEPING AND DAUGHTER REQUESTED NOT TO AWAKEN. WILL FOLLOW NEXT DAY. Therapist: KAYE PEPE OT/Patti Signature on file
[2017-05-14] MEDS ORDERED: MIDODRINE 5 MG TAB PO SCH (17:00)
[2017-05-14] MEDS ORDERED: MORPHINE SULFATE 4 MG/ML INJ IV PUSH PRN ×2 (18:00)
[2017-05-14 18:48] LABS: HEMATOCRIT 23.3 % (35.0-46.0); REVIEW FLAG FINAL
[2017-05-14] MEDS: SENNOSIDES 8.6 MG TAB PO SCH (19:58)
[2017-05-14] MEDS ORDERED: SODIUM CHLOR 0.9% 250 ML INJ 250 ML IV ONE (22:15)
[2017-05-15] VITALS (14 sets, daily range): BP systolic 92–114; BP diastolic 45–74; PULSE 80–113; RESP 17–20; TEMP 96.2–99.2; O2SAT 91–100
[2017-05-15] MEDS: MIDODRINE 5 MG TAB PO SCH ×3 (06:19→17:17)
[2017-05-15] MEDS: ENOXAPARIN SODIUM 30 MG/0.3 ML SYRINGE SQ SCH (06:19)
--- NOTE | 2017-05-15 07:38 | PD.ORT.PN ---
Subjective Subjective Remarks No complaints. Comfortably resting in bed. Objective Vitals Vital Signs Date Time Temp Pulse Resp B/P (MAP) Pulse Ox O2 Delivery O2 Flow Rate FiO2 05/15/17 05:17 99.2 89 20 100/51 98 05/15/17 05:02 99.1 93 20 103/51 99 05/15/17 04:05 98.5 90 20 101/53 94 05/15/17 01:01 98.6 91 18 92/45 99 05/15/17 00:44 98.8 108 20 104/48 93 05/15/17 00:00 96.5 113 19 107/53 (71) 91 05/14/17 20:00 98.4 97 16 80/47 (58) 95 05/14/17 19:55 94 Nasal Cannula 2.00 05/14/17 19:55 116 05/14/17 16:00 98.5 118 20 78/47 (57) 94 05/14/17 13:18 16 05/14/17 12:00 96.4 110 20 75/47 (56) 93 05/14/17 08:00 98.5 120 20 80/47 (58) 93 I/O 05/14/17 05/14/17 05/14/17 05/15/17 05/15/17 05/15/17 07:00 15:00 23:00 07:00 15:00 23:00 Intake Total 1017 ml 699 ml 499 ml 564 ml Output Total 300 ml 400 ml Balance 717 ml 299 ml 499 ml 564 ml Intake Oral 600 ml IV Total 1017 ml 99 ml 499 ml 284 ml Packed Cells 250 ml Blood Product IV Normal Saline Flush 30 ml Output Urine Total 300 ml 400 ml # Voids 2 # Bowel Movements 0 Result Diagram: 05/14/17 1836 05/14/17 0653 Objective Remarks Dressing dry. No abnormal swelling. No calf tenderness. Neuro exam normal Assessment & Plan Ortho Post Op Day #: 2 Problem List: Assessment and Plan Fracture right hip, peritrochanteric. Surgery: ORIF right hip with trochanteric nail: POD #2 PLAN: Stable orthopedically. Toe touch weightbearing. No dressing change. Lovenox for anticoagulation. [place] for pain. Prescriptions for discharge written. On medical service. Discharge when medically clear. Probably SNF today or Wednesday. Patient presently receiving transfusion for hemoglobin less than 8 Follow-up in 2 weeks Reji Rush MD May 15, 2017 07:38
[2017-05-15] MEDS: MAGNESIUM HYDROXIDE SUSP 30 ML CUP PO SCH ×3 (08:40→20:59)
[2017-05-15] MEDS: DOCUSATE SODIUM 50 MG/SENNA 8.6 MG TAB PO SCH ×2 (08:40→20:58)
[2017-05-15] MEDS: SODIUM CHLORIDE 0.9% FLUSH 5 ML FLUSH IVF SCH ×2 (08:47→20:57)
[2017-05-15] MEDS: LACTATED RINGER'S 1000 ML INJ 1,000 ML IV SCH (08:48)
--- NOTE | 2017-05-15 11:25 | HHI.PR ---
Subjective Remarks This is a pleasant 86 y/o Female who was admitted after she fell with secondary Right Hip fracture, she has Pulmonary fibrosis, She does not have a history of stroke, coronary artery disease, diabetes, or dementia. In the past she has had a left hip surgery approximately 2 years ago secondary to fall and hip fracture. She smoked for a short duration approximately 65 years ago. With her prior to surgery she did not have any complications from anesthesia or postop. Seen in her bedroom in the presence of her Daughter Mrs. Meyer she will go to [facility] at discharge. Objective Vital Signs Date Time Temp Pulse Resp B/P (MAP) Pulse Ox O2 Delivery O2 Flow Rate FiO2 05/15/17 08:32 96.7 80 17 111/69 100 05/15/17 08:00 96.7 80 17 111/69 (83) 100 05/15/17 05:17 99.2 89 20 100/51 98 05/15/17 05:02 99.1 93 20 103/51 99 05/15/17 04:05 98.5 90 20 101/53 94 05/15/17 01:01 98.6 91 18 92/45 99 05/15/17 00:44 98.8 108 20 104/48 93 05/15/17 00:00 96.5 113 19 107/53 (71) 91 05/14/17 20:00 98.4 97 16 80/47 (58) 95 05/14/17 19:55 94 Nasal Cannula 2.00 05/14/17 19:55 116 05/14/17 16:00 98.5 118 20 78/47 (57) 94 05/14/17 13:18 16 05/14/17 12:00 96.4 110 20 75/47 (56) 93 I/O 05/14/17 05/14/17 05/14/17 05/15/17 05/15/17 05/15/17 07:00 15:00 23:00 07:00 15:00 23:00 Intake Total 1017 ml 699 ml 499 ml 564 ml 300 ml Output Total 300 ml 400 ml Balance 717 ml 299 ml 499 ml 564 ml 300 ml Intake Oral 600 ml IV Total 1017 ml 99 ml 499 ml 284 ml Packed Cells 250 ml 250 ml Blood Product IV Normal Saline Flush 30 ml 50 ml Output Urine Total 300 ml 400 ml # Voids 2 # Bowel Movements 0 Result Diagram: 05/14/17 1836 05/14/17 0653 Imaging Last Impressions Hip X-Ray 05/13/17 0000 Signed Impressions: Service Date/Time: April 17:53 - CONCLUSION: Improved anatomic alignment following right femur ORIF. Fredy Lala MD Pelvis X-Ray 05/12/172333 Signed Impressions: Service Date/Time: April 00:06 - CONCLUSION: 1. Intertrochanteric fracture proximal right femur with varus angulation. Osteopenia. Joel Cullen MD Femur X-Ray 05/12/172333 Signed Impressions: Service Date/Time: April 00:07 - CONCLUSION: 1. Intertrochanteric fracture proximal right femur with varus angulation. Joel Cullen MD Chest X-Ray 05/12/172333 Signed Impressions: Service Date/Time: April 00:08 - CONCLUSION: 1. Worsening pulmonary fibrosis compared with 2015. Compression deformity again seen in the mid thoracic spine. No pneumothorax or effusion. Joel Cullen MD Procedures Peritrochanteric Right Hip fracture status post ORIF Right Hip with Trochanteric Nail Other Results Laboratory Tests Test 05/12/17 23:51 05/13/17 01:45 05/14/17 06:53 05/14/17 18:36 Neutrophils (%) (Auto) 70.6 % Lymphocytes (%) (Auto) 19.9 % Monocytes (%) (Auto) 7.3 % Eosinophils (%) (Auto) 1.8 % Basophils (%) (Auto) 0.4 % Neutrophils # (Auto) 7.0 TH/MM3 Lymphocytes # (Auto) 2.0 TH/MM3 Monocytes # (Auto) 0.7 TH/MM3 Eosinophils # (Auto) 0.2 TH/MM3 Basophils # (Auto) 0.0 TH/MM3 CBC Comment DIFF FINAL Differential Comment Prothrombin Time 10.2 SEC Prothromb Time International Ratio 0.9 RATIO Activated Partial Thromboplast Time 19.8 SEC Blood Urea Nitrogen 24 MG/DL 21 MG/DL Creatinine 0.60 MG/DL 0.78 MG/DL Random Glucose 147 MG/DL 128 MG/DL Total Protein 6.4 GM/DL Albumin 2.5 GM/DL Calcium Level 8.2 MG/DL 8.2 MG/DL Alkaline Phosphatase 91 U/L Aspartate Amino Transf (AST/SGOT) 20 U/L Alanine Aminotransferase (ALT/SGPT) 18 U/L Total Bilirubin 0.2 MG/DL Sodium Level 140 MEQ/L 141 MEQ/L Potassium Level 4.3 MEQ/L 4.5 MEQ/L Chloride Level 107 MEQ/L 104 MEQ/L Carbon Dioxide Level 26.8 MEQ/L 26.6 MEQ/L Urine Color YELLOW Urine Turbidity CLEAR Urine pH 5.0 Urine Specific [place] 1.025 Urine Protein TRACE mg/dL Urine Glucose (UA) NEG mg/dL Urine Ketones NEG mg/dL Urine Occult Blood NEG Urine Nitrite NEG Urine Bilirubin NEG Urine Urobilinogen LESS THAN 2.0 MG/DL Urine Leukocyte Esterase NEG Urine RBC 6 /hpf Urine WBC 2 /hpf Urine Squamous Epithelial Cells <1 /hpf Urine Mucus FEW /lpf Microscopic Urinalysis Comment CATH-CULT NOT IND White Blood Count 11.8 TH/MM3 Red Blood Count 2.79 MIL/MM3 Mean Corpuscular Volume 95.1 FL Mean Corpuscular Hemoglobin 31.8 PG Mean Corpuscular Hemoglobin Concent 33.5 % Red Cell Distribution Width 12.6 % Platelet Count 151 TH/MM3 Mean Platelet Volume 8.1 FL Anion Gap 10 MEQ/L Estimat Glomerular Filtration Rate 70 ML/MIN Hemoglobin 7.8 GM/DL Hematocrit 23.3 % Objective Remarks GENERAL: NAD, A&Ox3 HEAD: Normocephalic. NECK: Supple, trachea midline. No lymphadenopathy. EYES: No scleral icterus. No injection or drainage. CARDIOVASCULAR: Regular rate and rhythm without murmurs, gallops, or rubs. RESPIRATORY: Breath sounds equal bilaterally. No accessory muscle use. GASTROINTESTINAL: Abdomen soft, non-tender, nondistended. MUSCULOSKELETAL: No cyanosis, or edema. Bandage a right hip SKIN: Warm and dry. NEURO: No focal neurological deficits Medications and IVs Current Medications Medications (Trade) Dose Ordered Sig/Toby Route Start Time Stop Time Status Last Admin (Narcan Inj) 0.4 mg UNSCH PRN IV 05/13/17 02:00 (Keely-Colace) 1 tab BID PO 05/13/17 09:00 05/15/17 08:40 (Milk Of Magnesia Liq) 30 ml Q12H PRN PO 05/13/17 02:00 05/13/17 20:24 (Senokot) 17.2 mg Q12H PRN PO 05/13/17 02:00 (Dulcolax Supp) 10 mg DAILY PRN RECTAL 05/13/17 02:00 (Lactulose Liq) 30 ml DAILY PRN PO 05/13/17 02:00 Lactated Ringer's 1,000 ml @ 30 mls/hr Q24H PRN IV 05/13/17 04:00 05/16/17 03:59 Sodium Chloride 500 ml @ 30 mls/hr [id number] PRN IV 05/13/17 04:00 05/16/17 03:59 (Betadine 5% Antisepsis Kit) 1 applic SENIOR PRINCIPAL SOFTWARE ENGINEER PRN EACH NARE 05/13/17 04:00 05/16/17 03:59 (Chlorhexidine 2% Cloth) 3 pack SENIOR PRINCIPAL SOFTWARE ENGINEER PRN TOPICAL 05/13/17 04:00 05/16/17 03:59 (NovoLIN R INJ) See Protocol Table ... SENIOR PRINCIPAL SOFTWARE ENGINEER PRN SQ 05/13/17 04:00 05/16/17 03:59 Lactated Ringer's 1,000 ml @ 80 mls/hr [id number] IV 05/13/17 20:00 05/14/17 19:58 (NS Flush) 2 ml UNSCH PRN IVF 05/13/17 18:15 (NS Flush) 2 ml BID IVF 05/13/17 21:00 05/15/17 08:47 (Lovenox Inj) 30 mg Q24H SQ 05/14/17 06:30 05/15/17 06:19 Miscellaneous Information UNSCH PRN XX 05/13/17 18:15 (Zofran Inj) 4 mg Q6H PRN IVP 05/13/17 18:15 (Mag-Al Plus Susp Liq) 30 ml Q6H PRN PO 05/13/17 18:15 (Restoril) 15 mg HS PRN PO 05/13/17 18:15 (Milk Of Magnesia Liq) 30 ml BID PO 05/13/17 21:00 05/15/17 08:40 (Senokot) 17.2 mg HS PO 05/13/17 21:00 05/14/17 19:58 (Morphine Inj) 2 mg Q3H PRN IV PUSH 05/14/17 18:00 (Morphine Inj) 4 mg Q3H PRN IV PUSH 05/14/17 18:00 Sodium Chloride 250 ml @ 15 mls/hr ONCE ONCE IV 05/14/17 22:15 05/15/17 14:54 (Proamatine) 10 mg TID@07,12,17 PO 05/15/17 07:00 05/15/17 06:19 A/P Assessment and Plan 86-year-old female admitted secondary to fracture of right hip secondary to fall. Now postop repair. Blood pressures look today. 500 mL fluid boluses provided. Patient will also be started on midodrine 5 mg 3 times a day as the etiology for her hypotension is most likely related to narcotic effect. Repeat hemoglobin level to ensure that a.m. value is not overestimated as blood loss anemia could also contribute to hypotension. Right hip fracture Status post Peritrochanteric Right Hip fracture status post ORIF Right Hip with Trochanteric Nail POD#2 Stable Orthopedically, Toe touch weightbearing, No dressing change, Lovenox for anticoagulation, [place] for pain, Okay to discharge probable today or Wednesday, and follow in two weeks, awaiting for follow up post blood transfusion for Hemoglobin below 8. History of pulmonary fibrosis Patient takes no treatments for this She is not dependent on oxygen or breathing treatments No exacerbation respiratory status continue bronchodilator, Mucolytic and incentive spirometry. Hypotension ON Midodrine. DVT prophylaxis SCDs Lovenox. Discussed with patient and nurse Miss Velasquez also her Daughter Mrs. Meyer present in the room all questions answered to the best of my abilities, will go to [facility] at discharge. Discharge Planning Expected by tomorrow. Tarik Paige MD May 15, 2017 11:25
[2017-05-15] MEDS ORDERED: MORPHINE SULFATE 4 MG/ML INJ IV PUSH PRN ×2 (12:00)
[2017-05-15 13:39] LABS: HEMATOCRIT 35.7 % (35.0-46.0); MEAN CELL VOLUME 91.4 FL (80.0-100.0); MEAN CORPUSCULAR HEMOGLOBIN 30.9 PG (27.0-34.0); MEAN CORPUSCULAR HGB CONC 33.8 % (32.0-36.0); PLATELET COUNT 134 TH/MM3 (150-450); RED CELL DISTRIBUTION WIDTH 13.4 % (11.6-17.2); REVIEW FLAG FINAL; WHITE BLOOD COUNT 11.8 TH/MM3 (4.0-11.0)
[2017-05-15 13:53] LABS: BICARBONATE 27.5 MEQ/L (21.0-32.0); POTASSIUM 3.8 MEQ/L (3.5-5.1)
[2017-05-15] MEDS: RESP: ALBUTEROL 2.5 MG/IPRATROPIUM 0.5 MG NEB (SCH) NEB ×2 (16:07→20:16)
[2017-05-15] MEDS: guaiFENesin E.R. 600 MG TAB PO SCH (20:57)
[2017-05-15] MEDS: SENNOSIDES 8.6 MG TAB PO SCH (20:58)
[2017-05-16] VITALS (7 sets, daily range): BP systolic 108–111; BP diastolic 53–56; PULSE 98–107; RESP 17–19; TEMP 95.5–98.5; O2SAT 92–100
[2017-05-16] MEDS: RESP: ALBUTEROL 2.5 MG/IPRATROPIUM 0.5 MG NEB (SCH) NEB ×4 (00:59→11:58)
[2017-05-16] MEDS: MIDODRINE 5 MG TAB PO SCH ×2 (06:11→11:32)
[2017-05-16] MEDS: ENOXAPARIN SODIUM 30 MG/0.3 ML SYRINGE SQ SCH (06:28)
--- NOTE | 2017-05-16 07:50 | PD.ORT.PN ---
Subjective Subjective Remarks No complaints. Comfortably resting in bed. Objective Vitals Vital Signs Date Time Temp Pulse Resp B/P (MAP) Pulse Ox O2 Delivery O2 Flow Rate FiO2 05/16/17 07:40 97.9 98 19 111/53 (72) 98 05/16/17 04:00 97.1 99 17 108/53 (71) 100 05/16/17 01:00 92 Nasal Cannula 3.00 05/16/17 00:45 Nasal Cannula 3.00 05/16/17 00:00 98.5 99 17 108/56 (73) 100 05/15/17 20:27 88 05/15/17 20:20 93 Nasal Cannula 2.00 05/15/17 19:00 96.2 98 18 95/56 (69) 92 05/15/17 16:13 98 Nasal Cannula 2.00 05/15/17 16:00 97.1 88 18 114/74 (87) 95 05/15/17 12:00 96.3 89 18 113/57 (75) 94 05/15/17 08:32 96.7 80 17 111/69 100 05/15/17 08:00 96.7 80 17 111/69 (83) 100 05/15/17 08:00 94 Nasal Cannula 2.00 I/O 05/15/17 05/15/17 05/15/17 05/16/17 05/16/17 05/16/17 07:00 15:00 23:00 07:00 15:00 23:00 Intake Total 564 ml 700 ml 480 ml 340 ml Balance 564 ml 700 ml 480 ml 340 ml Intake Oral 400 ml 480 ml 340 ml IV Total 284 ml Packed Cells 250 ml 250 ml Blood Product IV Normal Saline Flush 30 ml 50 ml # Voids 2 3 1 # Bowel Movements 1 0 0 Result Diagram: 05/15/17 1301 05/15/17 1301 Objective Remarks Dressing dry. No abnormal swelling. No calf tenderness. Neuro exam normal Assessment & Plan Assessment and Plan Fracture right hip, peritrochanteric. Surgery: ORIF right hip with trochanteric nail: POD #3 PLAN: Stable orthopedically. Hemoglobin greater than 12, status post transfusion. Toe touch weightbearing. No dressing change. Lovenox for anticoagulation. [place] for pain. Prescriptions for discharge written. On medical service. Discharge when medically clear. Probably SNF today. Patient presently receiving transfusion for hemoglobin less than 8 Follow-up in 2 weeks Reji Rush MD May 16, 2017 07:50
[2017-05-16 08:29] LABS: AUTOMATED NEUTROPHIL # 8.2 TH/MM3 (1.8-7.7); BASOPHIL % 0.2 % (0.0-2.0); EOSINOPHIL # 0.1 TH/MM3 (0-0.4); EOSINOPHIL % 0.7 % (0.0-4.0); HEMATOCRIT 29.2 % (35.0-46.0); HEMO FLAGS DIFF FINAL; LYMPH % 9.4 % (9.0-44.0); MEAN CELL VOLUME 92.5 FL (80.0-100.0); MEAN CORPUSCULAR HEMOGLOBIN 31.5 PG (27.0-34.0); MONO % 10.5 % (0.0-8.0); NEUT % 79.2 % (16.0-70.0); PLATELET COUNT 121 TH/MM3 (150-450); RED BLOOD COUNT 3.15 MIL/MM3 (4.00-5.30); RED CELL DISTRIBUTION WIDTH 13.4 % (11.6-17.2); WHITE BLOOD COUNT 10.3 TH/MM3 (4.0-11.0)
[2017-05-16] MEDS: guaiFENesin E.R. 600 MG TAB PO SCH (08:47)
[2017-05-16] MEDS: DOCUSATE SODIUM 50 MG/SENNA 8.6 MG TAB PO SCH (08:47)
[2017-05-16] MEDS: SODIUM CHLORIDE 0.9% FLUSH 5 ML FLUSH IVF SCH (08:50)
[2017-05-16] MEDS: MAGNESIUM HYDROXIDE SUSP 30 ML CUP PO SCH (08:50)
[2017-05-16 08:58] LABS: BICARBONATE 27.8 MEQ/L (21.0-32.0); MAGNESIUM 2.1 MG/DL (1.5-2.5); POTASSIUM 3.7 MEQ/L (3.5-5.1)
--- NOTE | 2017-05-16 09:31 | HHI.PR ---
Subjective Remarks This is a pleasant 86 y/o Female who was admitted after she fell with secondary Right Hip fracture, she has Pulmonary fibrosis, She does not have a history of stroke, coronary artery disease, diabetes, or dementia. In the past she has had a left hip surgery approximately 2 years ago secondary to fall and hip fracture. She smoked for a short duration approximately 65 years ago. With her prior to surgery she did not have any complications from anesthesia or postop. Seen in her bedroom in the presence of her Daughter Mrs. Meyer she will go to [facility] at discharge. 05/16: patient in her bedroom in the presence of her Daughter already seen today by her Primary Orthopedic software quality specialist Doctor Reji Blevins and recommended for discharge and follow up in two weeks. no nausea, vomit or diarrhea she continue with some dyspnea but as per her Daughter this is her baseline, will go to SNF today. Objective Vital Signs Date Time Temp Pulse Resp B/P (MAP) Pulse Ox O2 Delivery O2 Flow Rate FiO2 05/16/17 08:55 97 Nasal Cannula 3.00 05/16/17 07:40 97.9 98 19 111/53 (72) 98 05/16/17 04:00 97.1 99 17 108/53 (71) 100 05/16/17 01:00 92 Nasal Cannula 3.00 05/16/17 00:45 Nasal Cannula 3.00 05/16/17 00:00 98.5 99 17 108/56 (73) 100 05/15/17 20:27 88 05/15/17 20:20 93 Nasal Cannula 2.00 05/15/17 19:00 96.2 98 18 95/56 (69) 92 05/15/17 16:13 98 Nasal Cannula 2.00 05/15/17 16:00 97.1 88 18 114/74 (87) 95 05/15/17 12:00 96.3 89 18 113/57 (75) 94 I/O 05/15/17 05/15/17 05/15/17 05/16/17 05/16/17 05/16/17 07:00 15:00 23:00 07:00 15:00 23:00 Intake Total 564 ml 700 ml 480 ml 340 ml Balance 564 ml 700 ml 480 ml 340 ml Intake Oral 400 ml 480 ml 340 ml IV Total 284 ml Packed Cells 250 ml 250 ml Blood Product IV Normal Saline Flush 30 ml 50 ml # Voids 2 3 1 # Bowel Movements 1 0 0 Result Diagram: 05/16/17 0742 05/16/17 0742 Imaging Last Impressions Hip X-Ray 05/13/17 0000 Signed Impressions: Service Date/Time: April 17:53 - CONCLUSION: Improved anatomic alignment following right femur ORIF. Fredy Lala MD Pelvis X-Ray 05/12/172333 Signed Impressions: Service Date/Time: April 00:06 - CONCLUSION: 1. Intertrochanteric fracture proximal right femur with varus angulation. Osteopenia. Joel Cullen MD Femur X-Ray 05/12/172333 Signed Impressions: Service Date/Time: April 00:07 - CONCLUSION: 1. Intertrochanteric fracture proximal right femur with varus angulation. Joel Cullen MD Chest X-Ray 05/12/172333 Signed Impressions: Service Date/Time: April 00:08 - CONCLUSION: 1. Worsening pulmonary fibrosis compared with 2015. Compression deformity again seen in the mid thoracic spine. No pneumothorax or effusion. Joel Cullen MD Procedures Peritrochanteric Right Hip fracture status post ORIF Right Hip with Trochanteric Nail Other Results Laboratory Tests Test 05/12/17 23:51 05/13/17 01:45 05/16/17 07:42 Prothrombin Time 10.2 SEC Prothromb Time International Ratio 0.9 RATIO Activated Partial Thromboplast Time 19.8 SEC Blood Urea Nitrogen 24 MG/DL 14 MG/DL Creatinine 0.60 MG/DL 0.45 MG/DL Random Glucose 147 MG/DL 105 MG/DL Total Protein 6.4 GM/DL Albumin 2.5 GM/DL Calcium Level 8.2 MG/DL 7.5 MG/DL Alkaline Phosphatase 91 U/L Aspartate Amino Transf (AST/SGOT) 20 U/L Alanine Aminotransferase (ALT/SGPT) 18 U/L Total Bilirubin 0.2 MG/DL Sodium Level 140 MEQ/L 137 MEQ/L Potassium Level 4.3 MEQ/L 3.7 MEQ/L Chloride Level 107 MEQ/L 102 MEQ/L Carbon Dioxide Level 26.8 MEQ/L 27.8 MEQ/L Urine Color YELLOW Urine Turbidity CLEAR Urine pH 5.0 Urine Specific [place] 1.025 Urine Protein TRACE mg/dL Urine Glucose (UA) NEG mg/dL Urine Ketones NEG mg/dL Urine Occult Blood NEG Urine Nitrite NEG Urine Bilirubin NEG Urine Urobilinogen LESS THAN 2.0 MG/DL Urine Leukocyte Esterase NEG Urine RBC 6 /hpf Urine WBC 2 /hpf Urine Squamous Epithelial Cells <1 /hpf Urine Mucus FEW /lpf Microscopic Urinalysis Comment CATH-CULT NOT IND White Blood Count 10.3 TH/MM3 Red Blood Count 3.15 MIL/MM3 Hemoglobin 9.9 GM/DL Hematocrit 29.2 % Mean Corpuscular Volume 92.5 FL Mean Corpuscular Hemoglobin 31.5 PG Mean Corpuscular Hemoglobin Concent 34.0 % Red Cell Distribution Width 13.4 % Platelet Count 121 TH/MM3 Mean Platelet Volume 8.7 FL Neutrophils (%) (Auto) 79.2 % Lymphocytes (%) (Auto) 9.4 % Monocytes (%) (Auto) 10.5 % Eosinophils (%) (Auto) 0.7 % Basophils (%) (Auto) 0.2 % Neutrophils # (Auto) 8.2 TH/MM3 Lymphocytes # (Auto) 1.0 TH/MM3 Monocytes # (Auto) 1.1 TH/MM3 Eosinophils # (Auto) 0.1 TH/MM3 Basophils # (Auto) 0.0 TH/MM3 CBC Comment DIFF FINAL Differential Comment Magnesium Level 2.1 MG/DL Anion Gap 7 MEQ/L Estimat Glomerular Filtration Rate 132 ML/MIN Objective Remarks GENERAL: NAD, A&Ox3 HEAD: Normocephalic. NECK: Supple, trachea midline. No lymphadenopathy. EYES: No scleral icterus. No injection or drainage. CARDIOVASCULAR: Regular rate and rhythm without murmurs, gallops, or rubs. RESPIRATORY: Breath sounds equal bilaterally. Mild dyspnea evident. continue Oxygen by Nasal Cannula. GASTROINTESTINAL: Abdomen soft, non-tender, nondistended. MUSCULOSKELETAL: No cyanosis, or edema. Bandage a right hip SKIN: Warm and dry. NEURO: No focal neurological deficits Medications and IVs Current Medications Medications (Trade) Dose Ordered Sig/Toby Route Start Time Stop Time Status Last Admin (Narcan Inj) 0.4 mg UNSCH PRN IV 05/13/17 02:00 (Keely-Colace) 1 tab BID PO 05/13/17 09:00 05/16/17 08:47 (Milk Of Magnesia Liq) 30 ml Q12H PRN PO 05/13/17 02:00 05/13/17 20:24 (Senokot) 17.2 mg Q12H PRN PO 05/13/17 02:00 (Dulcolax Supp) 10 mg DAILY PRN RECTAL 05/13/17 02:00 (Lactulose Liq) 30 ml DAILY PRN PO 05/13/17 02:00 (NS Flush) 2 ml UNSCH PRN IVF 05/13/17 18:15 (NS Flush) 2 ml BID IVF 05/13/17 21:00 05/16/17 08:50 (Lovenox Inj) 30 mg Q24H SQ 05/14/17 06:30 05/16/17 06:28 Miscellaneous Information UNSCH PRN XX 05/13/17 18:15 (Zofran Inj) 4 mg Q6H PRN IVP 05/13/17 18:15 (Mag-Al Plus Susp Liq) 30 ml Q6H PRN PO 05/13/17 18:15 (Restoril) 15 mg HS PRN PO 05/13/17 18:15 (Milk Of Magnesia Liq) 30 ml BID PO 05/13/17 21:00 05/15/17 08:40 (Senokot) 17.2 mg HS PO 05/13/17 21:00 05/15/17 20:58 (Proamatine) 10 mg TID@07,12,17 PO 05/15/17 07:00 05/16/17 06:11 (Morphine Inj) 1 mg Q3H PRN IV PUSH 05/15/17 12:00 05/15/17 12:17 (Morphine Inj) 2 mg Q3H PRN IV PUSH 05/15/17 12:00 (Duoneb Neb) 1 ampule Q4HR NEB NEB 05/15/17 12:00 05/16/17 08:53 (Mucinex Er) 600 mg BID PO 05/15/17 21:00 05/16/17 08:47 A/P Assessment and Plan 86-year-old female admitted secondary to fracture of right hip secondary to fall. Now postop repair. Blood pressures look today. 500 mL fluid boluses provided. Patient will also be started on midodrine 5 mg 3 times a day as the etiology for her hypotension is most likely related to narcotic effect. Repeat hemoglobin level to ensure that a.m. value is not overestimated as blood loss anemia could also contribute to hypotension. Right hip fracture Status post Peritrochanteric Right Hip fracture status post ORIF Right Hip with Trochanteric Nail POD#2 Stable Orthopedically, Toe touch weightbearing, No dressing change, Lovenox for anticoagulation, [place] for pain, Okay to discharge probable today or Wednesday, and follow in two weeks, Status post blood transfusion now Hemoglobin 9.9 History of pulmonary fibrosis Patient takes no treatments for this She is not dependent on oxygen or breathing treatments No exacerbation respiratory status continue bronchodilator, Mucolytic and incentive spirometry. Hypotension ON Midodrine. stable continue present care. DVT prophylaxis SCDs Lovenox. Discussed with patient and nurse Miss Velasquez also her Daughter Mrs. Meyer present in the room all questions answered to the best of my abilities, will go to [facility] at discharge. Discharge Planning Discharge today to SNF Tarik Paige MD May 16, 2017 09:31
[2017-05-16] MEDS ORDERED: MIDO5TAB PO (10:51)
[2017-05-16] MEDS ORDERED: guaiFENesin ER PO (10:51)
[2017-05-16] MEDS ORDERED: REST15CA PO (10:51)
[2017-05-16] MEDS ORDERED: IPRASOL NEB (10:51)
--- NOTE | 2017-05-16 10:55 | HHI.DS ---
Discharge Summary Admission Date May 13, 2017 at 01:58 Discharge Date: May 16, 2017 Admitting Diagnosis R hip fracture; h/o pulmonary fibrosis (1) Closed right hip fracture ICD Code: S72.001A - Fracture of unspecified part of neck of right femur, initial encounter for closed fracture Diagnosis: Principal Status: Acute (2) H/O pulmonary fibrosis ICD Code: Z87.09 - Personal history of other diseases of the respiratory system Diagnosis: Principal Status: Acute Procedures Peritrochanteric Right Hip fracture status post ORIF Right Hip with Trochanteric Nail Brief History - From Admission Mrs. Amin is an 86-year-old female. She is in the hospital today after having a right hip fracture secondary to fall. When seen her pain is not yet controlled. She has no other complaints other than pain. Her only medical condition is history of pulmonary fibrosis. She does not have a history of stroke, coronary artery disease, diabetes, or dementia. In the past she has had a left hip surgery approximately 2 years ago secondary to fall and hip fracture. She's also had a hysterectomy in 2007. She smoked for a short duration approximately 65 years ago. With her prior to surgery she did not have any complications from anesthesia or postop. CBC/BMP: 05/16/17 0742 05/16/17 0742 Significant Findings Laboratory Tests Test 05/14/17 06:53 05/14/17 18:36 05/15/17 13:01 05/16/17 07:42 White Blood Count 11.8 TH/MM3 (4.0-11.0) 11.8 TH/MM3 (4.0-11.0) Red Blood Count 2.79 MIL/MM3 (4.00-5.30) 3.90 MIL/MM3 (4.00-5.30) 3.15 MIL/MM3 (4.00-5.30) Hemoglobin 8.9 GM/DL (11.6-15.3) 7.8 GM/DL (11.6-15.3) 9.9 GM/DL (11.6-15.3) Hematocrit 26.5 % (35.0-46.0) 23.3 % (35.0-46.0) 29.2 % (35.0-46.0) Blood Urea Nitrogen 21 MG/DL (7-18) Random Glucose 128 MG/DL (74-106) 140 MG/DL (74-106) Calcium Level 8.2 MG/DL (8.5-10.1) 8.0 MG/DL (8.5-10.1) 7.5 MG/DL (8.5-10.1) Estimat Glomerular Filtration Rate 70 ML/MIN (>89) Platelet Count 134 TH/MM3 (150-450) 121 TH/MM3 (150-450) Neutrophils (%) (Auto) 79.2 % (16.0-70.0) Monocytes (%) (Auto) 10.5 % (0.0-8.0) Neutrophils # (Auto) 8.2 TH/MM3 (1.8-7.7) Monocytes # (Auto) 1.1 TH/MM3 (0-0.9) Creatinine 0.45 MG/DL (0.50-1.00) Imaging Last Impressions Hip X-Ray 05/13/17 0000 Signed Impressions: Service Date/Time: April 17:53 - CONCLUSION: Improved anatomic alignment following right femur ORIF. Fredy Lala MD Pelvis X-Ray 05/12/172333 Signed Impressions: Service Date/Time: April 00:06 - CONCLUSION: 1. Intertrochanteric fracture proximal right femur with varus angulation. Osteopenia. Joel Cullen MD Femur X-Ray 05/12/172333 Signed Impressions: Service Date/Time: April 00:07 - CONCLUSION: 1. Intertrochanteric fracture proximal right femur with varus angulation. Joel Cullen MD Chest X-Ray 05/12/172333 Signed Impressions: Service Date/Time: April 00:08 - CONCLUSION: 1. Worsening pulmonary fibrosis compared with 2015. Compression deformity again seen in the mid thoracic spine. No pneumothorax or effusion. Joel Cullen MD PE at Discharge GENERAL: NAD, A&Ox3 HEAD: Normocephalic. NECK: Supple, trachea midline. No lymphadenopathy. EYES: No scleral icterus. No injection or drainage. CARDIOVASCULAR: Regular rate and rhythm without murmurs, gallops, or rubs. RESPIRATORY: Breath sounds equal bilaterally. Mild dyspnea evident. continue Oxygen by Nasal Cannula. GASTROINTESTINAL: Abdomen soft, non-tender, nondistended. MUSCULOSKELETAL: No cyanosis, or edema. Bandage a right hip SKIN: Warm and dry. NEURO: No focal neurological deficits Hospital Course This is a pleasant 86 y/o Female who was admitted after she fell with secondary Right Hip fracture, she has Pulmonary fibrosis, She does not have a history of stroke, coronary artery disease, diabetes, or dementia. In the past she has had a left hip surgery approximately 2 years ago secondary to fall and hip fracture. She smoked for a short duration approximately 65 years ago. With her prior to surgery she did not have any complications from anesthesia or postop. Seen in her bedroom in the presence of her Daughter Mrs. Meyer she will go to [facility] at discharge. 05/16: patient in her bedroom in the presence of her Daughter already seen today by her Primary Orthopedic marketing production specialist Doctor Reji Blevins and recommended for discharge and follow up in two weeks. no nausea, vomit or diarrhea she continue with some dyspnea but as per her Daughter this is her baseline, will go to SNF today. Assessment and Plan 86-year-old female admitted secondary to fracture of right hip secondary to fall. Now postop repair. Blood pressures look today. 500 mL fluid boluses provided. Patient will also be started on midodrine 5 mg 3 times a day as the etiology for her hypotension is most likely related to narcotic effect. Repeat hemoglobin level to ensure that a.m. value is not overestimated as blood loss anemia could also contribute to hypotension. Right hip fracture Status post Peritrochanteric Right Hip fracture status post ORIF Right Hip with Trochanteric Nail POD#2 Stable Orthopedically, Toe touch weightbearing, No dressing change, Lovenox for anticoagulation, [place] for pain, Okay to discharge probable today or Wednesday, and follow in two weeks, Status post blood transfusion now Hemoglobin 9.9 History of pulmonary fibrosis Patient takes no treatments for this She is not dependent on oxygen or breathing treatments No exacerbation respiratory status continue bronchodilator, Mucolytic and incentive spirometry. Hypotension ON Midodrine. stable continue present care. DVT prophylaxis SCDs Lovenox. Discussed with patient and nurse Miss Velasquez also her Daughter Mrs. Meyer present in the room all questions answered to the best of my abilities, will go to [facility] at discharge. Discharge Planning Discharge today to SNF Pt Condition on Discharge: Stable Discharge Disposition: Discharge to SNF Discharge Time: > 30 minutes Discharge Instructions DIET: Follow Instructions for: As Tolerated, No Restrictions Activities you can perform: Weight Bearing as Dmitriy Tarik Paige MD May 16, 2017 10:55
== END 2017-05-16 14:52 | DRG 482 ==
LOC: NEPC 23:20 → NEDA 05-13 01:58 → N06A 05-13 03:33
PROVIDERS: ADMIT Internal Medicine; ATTEND Internal Medicine
PROC: 2W6LX0Z Traction of Right Lower Extremity using Traction Apparatus (ICD-10-PCS; 2017-05-13)
PROC: 0QS606Z Reposition Right Upper Femur with Intramedullary Internal Fixation Device, Open Approach (ICD-10-PCS; principal; 2017-05-13 16:31)
PROC: 30233N1 Transfusion of Nonautologous Red Blood Cells into Peripheral Vein, Percutaneous Approach (ICD-10-PCS; 2017-05-15)
DX: S72.141A Displaced intertrochanteric fracture of right femur, initial encounter for closed fracture (principal); I95.9 Hypotension, unspecified; J84.10 Pulmonary fibrosis, unspecified; D64.9 Anemia, unspecified; W01.0XXA Fall on same level from slipping, tripping and stumbling without subsequent striking against object, initial encounter; Y92.019 Unspecified place in single-family (private) house as the place of occurrence of the external cause; Z85.42 Personal history of malignant neoplasm of other parts of uterus; Z87.891 Personal history of nicotine dependence; M85.80 Other specified disorders of bone density and structure, unspecified site
CPT/HCPCS: 27250; 36430; 51702; 71010; 72170; 73502; 73552; 76000; 80048; 80053; 81001; 83735; 85014; 85018; 85025; 85027; 85610; 85730; 86850; 86900; 86901; 86920; 86922; 93005; 94150; 94640; 94664; 96374; C1713; J0131; J0690; J1580; J1650; J2270; J2370; J2405; J3010; J7040; J7120; P9016

== ENCOUNTER 2018-05-18 14:07 | Inpatient (IN) ==
--- NOTE | 2018-05-18 14:47 | ED ---
HPI General Chief Complaint: Respiratory Symptoms Stated Complaint: SOB Time Seen by Provider: 05/18/18 14:17 Source: patient, EMS, RN notes reviewed and old records reviewed Mode of arrival: EMS Limitations: other (clinical acuity) History of Present Illness 87-year-old female presents by ambulance for call of generalized weakness. When the ambulance team got on scene her oxygen saturations were in the 70s. They placed her on nasal cannula but her oxygen saturation was still low so they placed her on a nonrebreather and she started to improve in terms of mentation. Patient denies any pain but cannot provide me with significant history. MD Complaint: shortness of breath Onset (ago): hour(s) Related Data Home Medications Medication Instructions Recorded Confirmed timolol 1 drp OPHTHALMIC (EYE) DAILY NEB 05/18/18 05/18/18 Allergies Allergy/AdvReac Type Severity Reaction Status Date / Time No Known Allergies Allergy Unverified 05/18/18 14:31 Review of Systems ROS Unobtainable ROS Unobtainable: other (Clinical acuity but patient denies other complaints) [facility] Medical History Medical History Glaucoma (Acute) H/O: hysterectomy (Acute) Surgical History Surgical History History of hip replacement, total (Acute) Social History Social History Substance History: No History of Abuse Smoking Status: Former smoker How Often Do You Have a Drink Containing Alcohol: Never Recent Travel in [facility] within the Last 8 Weeks: No Immunization History Tetanus Immunization: >5 Years Hx Influenza Vaccine This Season: Yes Exam Narrative Exam Narrative: GENERAL: 87-year-old female who appears short of breath SKIN: Focused skin assessment warm/dry. HEAD: Atraumatic. Normocephalic. EYES: Pupils equal and round. No scleral icterus. No injection or drainage. ENT: No nasal bleeding or discharge. Mucous membranes pink and moist. NECK: Trachea midline. CARDIOVASCULAR: tachycardic rate and regular rhythm RESPIRATORY: Increased respiratory effort, coarse bilaterally GASTROINTESTINAL: Abdomen soft, non-tender, nondistended. MUSCULOSKELETAL: No obvious deformities. No clubbing. No cyanosis. Edema noted bilaterally NEUROLOGICAL: Awake. Moves all extremities. Normal speech. Course Reevaluation(s) Reevaluation #1: Chest x-ray with diffuse pattern. Will provide small bolus of IV fluids and broad-spectrum antibiotics. Patient improving on BiPAP Reevaluation #2: Daughter is at bedside. Patient has DNR as they have discussed this in the past. Will continue DNR as per patient request as discussed with daughter. Will provide otherwise aggressive care and monitor closely in the ICU. Consultations Consultation #1: Dr. Bain agrees to admission. Request CT chest and abdomen pelvis and vancomycin added to antibiotics which were ordered Initial Documented Vital Signs Pulse Oximetry 91 L 05/18/18 14:17 Last Documented Vital Signs Temperature 97.5 F L 05/18/18 14:20 Pulse Rate 114 H 05/18/18 15:30 Respiratory Rate 18 05/18/18 15:30 Blood Pressure 135/61 05/18/18 15:30 Pulse Oximetry 97 05/18/18 15:30 Critical Care Time Critical Care Time: Yes Total Critical Care Time: 60 Attestation: Aggregate critical care time was 60 minutes. Time to perform other separately billable procedures was not included in the critical care time. My time did not include minutes spent treating any other patients simultaneously or on activities that did not directly contribute to the patient's treatment. The services I provided to this patient were to treat and/or prevent clinically significant deterioration that could result in: Respiratory failure, I provided critical care services requiring my management, as noted below: Chart data review, documentation time, medication orders and management, vital sign assessments/reviewing monitor data, ordering and reviewing lab tests, ordering and interpreting/reviewing x-rays and diagnostic studies, care of the patient and discussion of the patient with the admitting physicians. Minutes. Time to perform other separately billable procedures was not included in the critical care time. My time did not include minutes spent treating any other patients simultaneously or on activities that did not directly contribute to the patient's treatment. The services I provided to this patient were to treat and/or prevent clinically significant deterioration that could result in: [-] I provided critical care services requiring my management, as noted below: Chart data review, documentation time, medication orders and management, vital sign assessments/reviewing monitor data, ordering and reviewing lab tests, ordering and interpreting/reviewing x-rays and diagnostic studies, care of the patient and discussion of the patient with the admitting physicians. Medical Decision Making MDM Narrative Medical decision making narrative: Patient arrived in respiratory distress. Will place on BiPAP and closely monitor while checking workup and imaging. Medical Screen Exam Complete: Yes Emergency Medical Condition: Yes Differential Diagnosis Differential Diagnosis: CHF, anemia, renal failure, pneumonia Lab Data Lab results reviewed: Yes I reviewed the patient's lab results. Result diagrams: 05/18/18 14:30 05/18/18 11:42 Lab Results 05/18/18 05/18/18 05/18/18 Range/Units 11:42 14:30 14:30 WBC 18.9 H (4.0-11.0) th/mm3 RBC 4.61 (4.00-5.30) mil/mm3 Hgb 14.6 (11.6-15.3) gm/dL Hct 44.4 (35.0-46.0) % MCV 96.4 (80.0-100.0) fL MCH 31.8 (27.0-34.0) pg MCHC 33.0 (32.0-36.0) % RDW 13.3 (11.6-17.2) % Plt Count 248 (150-450) th/mm3 MPV 8.5 (7.0-11.0) fL Neut % (Auto) 89.6 H (16.0-70.0) % Lymph % (Auto) 4.9 L (9.0-44.0) % [place] % (Auto) 5.4 (0.0-8.0) % Eos % (Auto) 0.0 (0.0-4.0) % Baso % (Auto) 0.1 (0.0-2.0) % Neut # (Auto) 16.9 H (1.8-7.7) th/mm3 Lymph # (Auto) 0.9 L (1.0-4.8) th/mm3 [place] # (Auto) 1.0 H (0.0-0.9) th/mm3 Eos # (Auto) 0.0 (0.0-0.4) th/mm3 Baso # (Auto) 0.0 (0.0-0.2) th/mm3 WBC Differential . Differential Comment Auto diff final PT 10.7 (9.8-11.6) sec INR 1.1 Ratio APTT 23.3 L (24.3-30.1) sec Puncture Site Patient Temperature O2 Saturation (90-100) % ABG pH (7.380-7.420) ABG pCO2 (38-42) mmHg ABG pO2 (61-120) mmHg ABG HCO3 (22-26) mmol/L ABG O2 Content (12.0-20.0) Vol % ABG Base Excess (-2-2) mmol/L ABG Methemoglobin (0-2) % Justin Test Hemoglobin (12.0-16.0) G/DL Carboxyhemoglobin (0-4) % O2 Delivery Device Vent Setting Inspired O2 % Critical Value Sodium 143 (136-145) meq/L Potassium 4.5 (3.5-5.1) meq/L Chloride 108 H (98-107) meq/L Carbon Dioxide 21.8 (21.0-32.0) meq/L Anion Gap 13 (5-15) meq/L BUN 21 H (7-18) mg/dL Creatinine 0.91 (0.50-1.00) mg/dL Estimated GFR 59 L (>89) mL/min Random Glucose 159 H (74-106) mg/dL Lactic Acid (0.4-2.0) mmol/L Calcium 8.6 (8.5-10.1) mg/dL Total Bilirubin 0.5 (0.2-1.0) mg/dL AST 42 H (15-37) U/L ALT 33 (10-53) U/L Alkaline Phosphatase 106 (45-117) U/L Total Creatine Kinase 147 (26-192) U/L CK-MB (CK-2) 3.0 (0.5-3.6) ng/mL Troponin I 0.32 H (0.02-0.05) ng/mL Total Protein 8.0 (6.4-8.2) g/dL Albumin 2.7 L (3.4-5.0) g/dL 05/18/18 05/18/18 Range/Units 14:46 16:07 WBC (4.0-11.0) th/mm3 RBC (4.00-5.30) mil/mm3 Hgb (11.6-15.3) gm/dL Hct (35.0-46.0) % MCV (80.0-100.0) fL MCH (27.0-34.0) pg MCHC (32.0-36.0) % RDW (11.6-17.2) % Plt Count (150-450) th/mm3 MPV (7.0-11.0) fL Neut % (Auto) (16.0-70.0) % Lymph % (Auto) (9.0-44.0) % [place] % (Auto) (0.0-8.0) % Eos % (Auto) (0.0-4.0) % Baso % (Auto) (0.0-2.0) % Neut # (Auto) (1.8-7.7) th/mm3 Lymph # (Auto) (1.0-4.8) th/mm3 [place] # (Auto) (0.0-0.9) th/mm3 Eos # (Auto) (0.0-0.4) th/mm3 Baso # (Auto) (0.0-0.2) th/mm3 WBC Differential Differential Comment PT (9.8-11.6) sec INR Ratio APTT (24.3-30.1) sec Puncture Site Right radial Patient Temperature 98.6 O2 Saturation 93 (90-100) % ABG pH 7.38 (7.380-7.420) ABG pCO2 39 (38-42) mmHg ABG pO2 75 (61-120) mmHg ABG HCO3 23 (22-26) mmol/L ABG O2 Content 17.8 (12.0-20.0) Vol % ABG Base Excess -1.6 (-2-2) mmol/L ABG Methemoglobin 0.4 (0-2) % Justin Test Present Hemoglobin 13.6 (12.0-16.0) G/DL Carboxyhemoglobin 1.3 (0-4) % O2 Delivery Device Bipap Vent Setting [id number] Inspired O2 50 % Critical Value No Sodium (136-145) meq/L Potassium (3.5-5.1) meq/L Chloride (98-107) meq/L Carbon Dioxide (21.0-32.0) meq/L Anion Gap (5-15) meq/L BUN (7-18) mg/dL Creatinine (0.50-1.00) mg/dL Estimated GFR (>89) mL/min Random Glucose (74-106) mg/dL Lactic Acid 7.5 H* (0.4-2.0) mmol/L Calcium (8.5-10.1) mg/dL Total Bilirubin (0.2-1.0) mg/dL AST (15-37) U/L ALT (10-53) U/L Alkaline Phosphatase (45-117) U/L Total Creatine Kinase (26-192) U/L CK-MB (CK-2) (0.5-3.6) ng/mL Troponin I (0.02-0.05) ng/mL Total Protein (6.4-8.2) g/dL Albumin (3.4-5.0) g/dL Imaging Data Attestation: I personally reviewed and interpreted this imaging study as follows : Radiologist's impression: Chest X-Ray 05/18/18 14:17 CONCLUSION: Fibrotic changes with superimposed bilateral pulmonary infiltrates. Abdomen/Pelvis CT 05/18/18 16:29 CONCLUSION: 1. Moderate amount of stool. 2. Cholelithiasis. 3. Nonobstructing right renal calculi. 4. No acute inflammatory changes are seen. Chest CT 05/18/18 16:29 CONCLUSION: 1. Pulmonary fibrosis. 2. Hilar adenopathy. Discharge Plan Discharge Disposition Patient Disposition: 30 Still Patient Discharge Condition Condition: Fair Discharge Details Diagnosis: Acute hypoxemic respiratory failure, Severe sepsis Physicians Team ED Provider: Manda Roberson Primary Care Provider: Torsten Vasquez Attending Provider: Nicolle Cox Other Providers: Rodrigue Husain Status ED Status: Admitted Patient
--- NOTE | 2018-05-18 14:49 | XR ---
EXAM DATE: 05/18/2018 2:29 PM EDT AGE/SEX: 87 years / Female INDICATIONS: Shortness of breath. CLINICAL DATA: This is the patient's initial encounter. Patient reports that signs and symptoms have been present for 1 day and indicates a pain score of Nonresponsive. MEDICAL/SURGICAL HISTORY: None. None. [place] [facility] [place]. . FINDINGS: There are patchy diffuse bilateral parenchymal infiltrates greatest in the left lower lobe. A backgro und of fibrotic changes are seen. There is cardiomegaly. No obvious effusions. Osseous structures are intact. CONCLUSION: Fibrotic changes with superimposed bilateral pulmonary infiltrates. Electronically signed by: Solo Gary MD 05/18/2018 2:47 PM EDT
[2018-05-18] MEDS ORDERED: Azithromycin Inj 500 MG in Sodium Chlor 0.9% Inj 250 ML IV.SIG STA (14:52)
[2018-05-18] MEDS ORDERED: Piperacil/Tazo 4.5 GM Premix 4.5 GM/100 ML BAG IV.SIG STA (14:52)
[2018-05-18 15:21] LABS: Baso % (Auto) 0.1 % (0.0-2.0); Hematocrit 44.4 % (35.0-46.0); Hemoglobin 14.6 gm/dL (11.6-15.3); Lymph # (Auto) 0.9 th/mm3 (1.0-4.8); Lymph % (Auto) 4.9 % (9.0-44.0); Mean Corpuscular Hemoglobin 31.8 pg (27.0-34.0); Mean Corpuscular Volume 96.4 fL (80.0-100.0); Mean Platelet Volume 8.5 fL (7.0-11.0); Mono % (Auto) 5.4 % (0.0-8.0); Neut # (Auto) 16.9 th/mm3 (1.8-7.7); Neut % (Auto) 89.6 % (16.0-70.0); Platelet Count 248 th/mm3 (150-450); Red Blood Count 4.61 mil/mm3 (4.00-5.30); Red Cell Distribution Width 13.3 % (11.6-17.2); White Blood Count 18.9 th/mm3 (4.0-11.0)
[2018-05-18 15:37] LABS: Activated Partial Thrombo Time 23.3 sec (24.3-30.1); INR 1.1 Ratio; Prothrombin Time 10.7 sec (9.8-11.6)
[2018-05-18] MEDS ORDERED: Sodium Chlor 0.9% Inj 500 ML IV.SIG SCH (16:00)
[2018-05-18 16:02] LABS: Alanine Aminotransferase 33 U/L (10-53); Albumin 2.7 g/dL (3.4-5.0); Alkaline Phosphatase 106 U/L (45-117); Anion Gap 13 meq/L (5-15); Aspartate Aminotransferase 42 U/L (15-37); Blood Urea Nitrogen 21 mg/dL (7-18); Calcium 8.6 mg/dL (8.5-10.1); Carbon Dioxide 21.8 meq/L (21.0-32.0); Chloride 108 meq/L (98-107); Creatine Kinase 147 U/L (26-192); Glomerular Filtration Rate 59 mL/min (>89); Glucose,Random 159 mg/dL (74-106); Potassium 4.5 meq/L (3.5-5.1); Sodium 143 meq/L (136-145); Troponin I 0.32 ng/mL (0.02-0.05)
[2018-05-18 16:20] LABS: ABG Base Excess -1.6 mmol/L (-2-2); ABG PCO2 39 mmHg (38-42); ABG PO2 75 mmHg (61-120)
[2018-05-18] MEDS ORDERED: Vancomycin Inj 1 GM/200 ML PIGGYBACK IV.SIG ONE (16:29)
[2018-05-18] MEDS ORDERED: Bisacodyl 10 MG Supp RECTAL PRN (16:31)
[2018-05-18] MEDS ORDERED: Dextrose 50% in Water 50 ML Vial IV.PUSH PRN (16:36)
[2018-05-18] MEDS ORDERED: Vancomycin Consult Pharmacy OTHER PRN (16:37)
[2018-05-18] MEDS ORDERED: Vancomycin Inj 1,000 MG in Sodium Chlor 0.9% Inj 250 ML IV.SIG ONE (17:00)
[2018-05-18] MEDS ORDERED: Aspirin 325 MG Tablet PO ONE (17:00)
--- NOTE | 2018-05-18 17:23 | CT ---
EXAM DATE: 05/18/2018 5:17 PM EDT AGE/SEX: 87 years / Female INDICATIONS: Generalized weakness and chest pain. CLINICAL DATA: This is the patient's initial encounter. Patient reports that signs and symptoms have been present for 1 day and indicates a pain score of 3/10. MEDICAL/SURGICAL HISTORY: None. Hysterectomy. Hip replacement. RADIATION DOSE: 5.06 CTDI (mGy) ; Combined studies COMPARISON: [facility], CHEST 1V SINGLE AP, 05/18/2018. . TECHNIQUE: Multiple contiguous axial images were obtained through the chest during bolus infusion of 60 ml Omnipaque 350 (iohexol) nonionic water-soluble contrast as a cumulative dose for multiple exa ms. Images were obtained in suspended respiration using multiple row detector helical technique. U sing automated exposure control and adjustment of the mA and/or kV according to patient size, radiati on dose was kept as low as reasonably achievable to obtain optimal diagnostic quality images. DICOM format image data is available electronically for review and comparison. FINDINGS: There are coarse fibrotic changes bilaterally with honeycombing in the subpleural regions greatest in the lower lobes. There is bronchiectasis noted. The osseous structures are intact. There is no lobar consolidation or pleural effusion. There is a compression fracture of the T7 vertebral body as well as the T5 vertebral body which are nonacute in appearance. There is bilateral hilar adenopathy up to 1.6 cm on the right and 1.3 cm on the left. Pectus excavatum is seen. CONCLUSION: 1. Pulmonary fibrosis. 2. Hilar adenopathy. Electronically signed by: Solo Gary MD 05/18/2018 5:21 PM EDT
--- NOTE | 2018-05-18 17:25 | CT ---
EXAM DATE: 05/18/2018 5:19 PM EDT AGE/SEX: 87 years / Female INDICATIONS: Weakness, abdominal pain. CLINICAL DATA: This is the patient's initial encounter. Patient reports that signs and symptoms have been present for 1 day and indicates a pain score of 3/10. MEDICAL/SURGICAL HISTORY: None. Hysterectomy. Hip replacement. ORAL CONTRAST: No oral contrast ingested. RADIATION DOSE: 5.06 CTDI (mGy) ; Combined studies COMPARISON: [facility], HIP RIGHT (AP&LAT 2/3VWS) WO AP PELVIS, 05/13/2017. . TECHNIQUE: Multiple contiguous axial images were obtained through the abdomen and pelvis following b olus infusion of 60 ml Omnipaque 350 (iohexol) nonionic water-soluble contrast as a cumulative dose for multiple exams. No oral contrast ingested. Using automated exposure control and adjustment of t he mA and/or kV according to patient size, radiation dose was kept as low as reasonably achievable to obtain optimal diagnostic quality images. DICOM format image data is available electronically for r eview and comparison. FINDINGS: There are fibrotic changes seen and bronchiectasis in the lower lobes. Cholelithiasis is noted with m ild distention of the gallbladder. Urinary bladder unremarkable. A moderate amount of stool is seen g reatest at the rectum. Spleen, pancreas, adrenals unremarkable. There is a tiny cyst at the upper lef t kidney. There are several nonobstructing calculi noted in the right kidney the largest the renal pe lvis measuring 9 mm. Atherosclerotic calcifications of the aorta and iliac vessels are noted. Postsur gical changes to the bilateral hips. Severe degenerative changes of the lumbar spine with nonacute mi ld wedging of the L2 vertebral body. CONCLUSION: 1. Moderate amount of stool. 2. Cholelithiasis. 3. Nonobstructing right renal calculi. 4. No acute inflammatory changes are seen. Electronically signed by: Solo Gary MD 05/18/2018 5:23 PM EDT
--- NOTE | 2018-05-18 18:00 | MH ---
cc: Nicolle Cox MD DATE OF ADMISSION: 05/18/2018 HISTORY OF PRESENT ILLNESS: The patient is an 87-year-old female with past medical history of pulmonary fibrosis on 2 liters home oxygen, being followed by Dr. 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 History of anxiety disorder and glaucoma. She presented to [facility] ED via ambulance for generalized weakness. When paramedics arrived, they found her hypoxic with O2 saturation in her 70s. She was placed on a nonrebreather and started to improve her mentation along with her oxygenation. On further history, per daughter, the patient gets short of breath mainly with exertion. She denies any associated symptoms of chest pain, coughing, wheezing or any constitutional symptoms. In addition, no history of orthopnea, PND, or edema of lower extremities. She denies any history of intubation or pneumonia. Her last admission was 1 year ago for a broken hip. On arrival to the ED, she was tachycardic, tachypneic, and hypertensive with a blood pressure 161/72. The patient was initially placed on 8 liters simple mask and then subsequently she was put on BiPAP 15/5 with 50% FiO2. ABG was drawn, which showed pH of 7.38, CO2 39, PaO2 75, bicarbonate of 23 and saturation 93%. A chest x-ray in the ED showed diffuse bilateral pulmonary infiltrates with fibrotic changes. No obvious effusions. Her labs are significant for leukocytosis with a WBC of 18.9 and lactic acidosis and lactic acidemia with a lactic acid level of 7.5. In the ED, she was given azithromycin, vancomycin and Zosyn. She was scheduled for a CT chest, abdomen and pelvis ordered by ED. PAST MEDICAL HISTORY: Significant for pulmonary fibrosis on 2 liters home oxygen, glaucoma, anxiety disorder. PAST SURGICAL HISTORY: Previous hip repair, previous hysterectomy in 2007, previous shoulder surgery for rotator cuff tear. SOCIAL HISTORY: Remote history of tobacco use, nonsmoker. MEDICATIONS AT HOME: Include Timolol eyedrops. FAMILY HISTORY: Noncontributing to present illness. REVIEW OF SYSTEMS: As per HPI. Rest of review of systems unremarkable. PHYSICAL EXAMINATION: GENERAL: An 87-year-old female lying, on a BiPAP, in mild respiratory distress. VITAL SIGNS: Temperature 97.5, pulse 114, respiratory rate of 18, blood pressure 135/61, saturation 97% on BiPAP 15/5 with 50% FiO2. HEENT: Atraumatic, normocephalic. Pupils are equal, round, reactive to light and accommodation. Extraocular muscles intact. Conjunctivae pink, nonicteric sclerae. Oral mucosa within normal. NECK: Supple. No JVD, adenopathy or thyromegaly. Trachea in the midline. CARDIOVASCULAR: Tachycardic. Normal S1, S2. No murmurs, rubs or gallops noted. PULMONARY: Bilateral air entry with coarse breath sounds and rhonchi at the bases. ABDOMEN: Soft, nontender. No distention. Positive bowel sounds. EXTREMITIES: No cyanosis, clubbing, edema noted. NEUROLOGIC: No focal sensory deficit. LABORATORY DATA: WBC 18.9, hemoglobin 14.6, hematocrit 44, platelet count of 248. Sodium 143, potassium 4.5, chloride 108, CO2 21, BUN 21, creatinine 0.91, glucose 159. Lactic acid 7.5, AST 42, ALT 33, total bilirubin 0.5, alkaline phosphatase 106. Troponin 0.32. Total CK 147, CK-MB 3.0. INR 1.1, PT 10.7, PTT 23.3. RADIOGRAPHIC STUDIES: Chest x-ray showed diffuse bilateral parenchymal infiltrates with fibrotic changes. EKG: Sinus tachycardia with heart rate 124 beats per minute. IMPRESSION: 1. Acute hypoxemic respiratory insufficiency. 2. Likely exacerbation of pulmonary fibrosis. 3. Leukocytosis, rule out infectious process. 4. Lactic acidemia likely secondary to hypoxemia. 5. Elevated troponin. 6. History of glaucoma. RECOMMENDATIONS: 1. Monitor neuro status closely and avoid any sedatives. 2. Continue with oxygen and maintain sats above 92%. 3. Place on bronchodilators in the form of DuoNeb q.4 plus q.2 p.r.n. for shortness of breath and Symbicort 160/4.5 two puffs b.i.d. 4. Start Solu-Medrol 60 mg IV q.6 hours. 5. Continue with BiPAP and consult Dr. Vasquez, as the patient is known to him. 6. Monitor heart rate and blood pressure closely and maintain MAP greater than 65 mmHg. Serial lactic acid monitoring until clear. 7. IV fluids. We will place on normal saline at 75 mL an hour. Check BNP level. 8. Follow up on the CT chest. 9. Monitor renal function, ins and outs and electrolyte replacement per protocol. IV fluids as stated above. 10. Keep n.p.o. for now until respiratory status improves and placed on Protonix 40 mg daily for gastrointestinal prophylaxis. 11. Continue broad-spectrum antibiotics, vancomycin, Zosyn and azithromycin. Monitor for signs of infection, which include fever and WBC. Follow up on blood cultures. In addition, we will obtain a sputum culture with Gram stain, Strep pneumoniae, and legionella urinary antigen. A CT abdomen and pelvis was ordered by emergency department for further evaluation of her lactic acidosis. 12. Monitor CBC. 13. Place on sliding scale insulin with Accu-Cheks for glycemic control as the patient will be on intravenous steroids. 14. Monitor troponin q.6 and will obtain 2-D echo to evaluate LV function. We will give aspirin 325 mg p.o. x1 now. 15. Gastrointestinal prophylaxis with Protonix 40 mg daily and deep venous thrombosis prophylaxis with sequential compression devices and heparin subcutaneous. 16. Further recommendations will be based on hospital course. Nicolle Cox MD AI/ct , 05:17 PM , 05:31 PM
[2018-05-18] MEDS: Pantoprazole Inj 40 MG Vial IV.PUSH SCH (18:07)
[2018-05-18] MEDS: Sod Chloride 0.9% Inj 1,000 ML IV.CONT SCH (18:07)
[2018-05-18] MEDS: Heparin - SQ 10,000 UNITS/ML Vial SQ SCH (18:08)
[2018-05-18] MEDS: MethylPREDNISolone Sod Succinate Inj 125 MG/2 ML Vial IV.PUSH SCH (19:11)
[2018-05-18] MEDS: Insulin NovoLIN Regular Correctional Sugar Inj SQ SCH (20:00)
[2018-05-18] MEDS: Budesonide-Formoterol 160/4.5 MCG 6 GM Inhaler INH SCH (21:00)
[2018-05-18] MEDS: Senna/Docusate Sodium 8.6/50 MG Tablet PO SCH (21:19)
[2018-05-18] MEDS: Piperacil/Tazo 4.5 GM Premix 4.5 GM/100 ML BAG IV.SIG SCH (21:19)
[2018-05-18] MEDS: Vancomycin Inj 750 MG in Sodium Chlor 0.9% Inj 250 ML IV.SIG SCH (21:19)
[2018-05-19] MEDS ORDERED: Sod Chloride 0.9% Inj 1,000 ML IV.SIG SCH (00:15)
[2018-05-19] MEDS: MethylPREDNISolone Sod Succinate Inj 125 MG/2 ML Vial IV.PUSH SCH ×5 (00:18→23:57)
[2018-05-19] MEDS: Insulin NovoLIN Regular Correctional Sugar Inj SQ SCH ×6 (00:19→20:00)
[2018-05-19] MEDS: Piperacil/Tazo 4.5 GM Premix 4.5 GM/100 ML BAG IV.SIG SCH ×4 (02:15→20:51)
[2018-05-19] MEDS: Chlorhexidine Gluconate 2% 1 Pack (2 Cloths) TOPICAL SCH (04:00)
[2018-05-19] MEDS ORDERED: Chlorhexidine Gluconate 2% 1 Pack (2 Cloths) TOPICAL PRN (04:00)
[2018-05-19 04:09] LABS: Baso % (Auto) 0.1 % (0.0-2.0); Hematocrit 41.3 % (35.0-46.0); Hemoglobin 13.5 gm/dL (11.6-15.3); Lymph # (Auto) 0.9 th/mm3 (1.0-4.8); Lymph % (Auto) 5.4 % (9.0-44.0); Mean Corpuscular HGB Conc 32.7 % (32.0-36.0); Mean Corpuscular Hemoglobin 31.6 pg (27.0-34.0); Mean Corpuscular Volume 96.7 fL (80.0-100.0); Mean Platelet Volume 7.9 fL (7.0-11.0); Mono # (Auto) 0.3 th/mm3 (0.0-0.9); Mono % (Auto) 2.1 % (0.0-8.0); Neut # (Auto) 15.5 th/mm3 (1.8-7.7); Neut % (Auto) 92.4 % (16.0-70.0); Platelet Count 171 th/mm3 (150-450); Red Blood Count 4.27 mil/mm3 (4.00-5.30); Red Cell Distribution Width 13.3 % (11.6-17.2); White Blood Count 16.8 th/mm3 (4.0-11.0)
[2018-05-19 04:26] LABS: Albumin 2.7 g/dL (3.4-5.0); Anion Gap 13 meq/L (5-15); Aspartate Aminotransferase 37 U/L (15-37); Blood Urea Nitrogen 20 mg/dL (7-18); Calcium 8.4 mg/dL (8.5-10.1); Chloride 111 meq/L (98-107); Glomerular Filtration Rate 59 mL/min (>89); Glucose,Random 143 mg/dL (74-106); Magnesium 1.9 mg/dL (1.5-2.5); Potassium 4.4 meq/L (3.5-5.1); Sodium 145 meq/L (136-145)
[2018-05-19 04:27] LABS: Alanine Aminotransferase 29 U/L (10-53); Phosphorus 3.6 mg/dL (2.5-4.9)
[2018-05-19 04:30] LABS: Alkaline Phosphatase 97 U/L (45-117); Total Protein 7.5 g/dL (6.4-8.2)
[2018-05-19 04:44] LABS: Troponin I 0.98 ng/mL (0.02-0.05)
[2018-05-19] MEDS: Sod Chloride 0.9% Inj 1,000 ML IV.CONT SCH ×2 (06:35→20:52)
[2018-05-19] MEDS: Senna/Docusate Sodium 8.6/50 MG Tablet PO SCH ×2 (10:55→20:52)
[2018-05-19] MEDS: Azithromycin 250 MG Tablet PO SCH (10:55)
[2018-05-19] MEDS: Pantoprazole Inj 40 MG Vial IV.PUSH SCH (10:57)
[2018-05-19] MEDS: Heparin - SQ 10,000 UNITS/ML Vial SQ SCH ×2 (10:58→20:51)
[2018-05-19] MEDS: Budesonide-Formoterol 160/4.5 MCG 6 GM Inhaler INH SCH ×2 (10:58→20:51)
--- NOTE | 2018-05-19 11:50 | ECG ---
Date Performed: 05/18/2018 Time Performed: 14:19:16 PTAGE: 87 years EKG: SINUS TACHYCARDIA POSSIBLE ANTERIOR MYOCARDIAL INFARCTION POSSIBLE INFERIOR MYOCARDIAL INFA RCTION ABNORMAL ECG PREVIOUS TRACING : 05/12/2017 23.56 Compared to previous tracing, abnormal R-wave progression i s new. This could be lead placement Clinical correlation is recommended DOCTOR: Shyam Carvajal Interpretating Date/Time 05/19/2018 11:49:23
--- NOTE | 2018-05-19 12:00 | ECHRPT ---
Indication: Shortness of breath CONCLUSIONS The left ventricular systolic function is low normal with an estimated ejection fraction in the rang e of 50- 55%. Wall thickness is normal. Normal left ventricular size. There is mild tricuspid valve regurgitation. The estimated pulmonary arterial pressure is 33 mmHg. BP: / HR: 140 Rhythm: Sinus MEASUREMENTS (Male / Female) Normal Values Technical Quality:Fair 2D ECHO LV Diastolic Diameter PLAX 2.7 cm 4.2 - 5.9 / 3.9 - 5.3 cm LV Systolic Diameter PLAX 2.1 cm IVS Diastolic Thickness 0.6 cm 0.6 - 1.0 / 0.6 - 0.9 cm LVPW Diastolic Thickness 0.7 cm 0.6 - 1.0 / 0.6 - 0.9 cm LV Relative Wall Thickness 0.5 LVOT Diameter 1.6 cm M-MODE Aortic Root Diameter MM 2.1 cm LA Systolic Diameter MM 2.0 cm LA Ao Ratio MM 1.0 AV Cusp Separation MM 1.3 cm DOPPLER AV Peak Velocity 97.7 cm/s AV Peak Gradient 3.8 mmHg LVOT Peak Velocity 66.6 cm/s LVOT Peak Gradient 1.8 mmHg AV Area Cont Eq pk 1.4 cm TR Peak Velocity 242.0 cm/s TR Peak Gradient 23.4 mmHg Right Atrial Pressure 10.0 mmHg Pulmonary Artery Systolic Pressu 33.4 mmHg Right Ventricular Systolic Press 33.4 mmHg FINDINGS LEFT VENTRICLE The left ventricular systolic function is low normal with an estimated ejection fraction in the rang e of 50- 55%. Wall thickness is normal. Normal left ventricular size. RIGHT VENTRICLE Normal right ventricular size and systolic function. LEFT ATRIUM The left atrial size is normal. RIGHT ATRIUM The right atrial size is normal. ATRIAL SEPTUM Normal atrial septal thickness without atrial level shunting by limited color doppler interrogation. AORTA The aortic root and proximal ascending aorta are normal in size on limited imaging. MITRAL VALVE Structurally normal mitral valve. No mitral valve stenosis or regurgitation. AORTIC VALVE Trileaflet aortic valve. No aortic valve stenosis or regurgitation. TRICUSPID VALVE There is mild tricuspid valve regurgitation. The estimated pulmonary arterial pressure is 33 mmHg. PULMONARY VALVE No pulmonary valve regurgitation or stenosis. VESSELS The inferior vena cava is normal in size. PERICARDIUM No pericardial effusion. Shekhar Thorne MD, FACC (Electronically Signed) Final Date:19 May 2018 11:59
--- NOTE | 2018-05-19 16:52 | P.PNCC ---
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 History of anxiety disorder and glaucoma. She presented to [facility] ED via ambulance for generalized weakness. When paramedics arrived, they found her hypoxic with O2 saturation in her 70s. She was placed on a nonrebreather and started to improve her mentation along with her oxygenation. On further history, per daughter, the patient gets short of breath mainly with exertion. She denies any associated symptoms of chest pain, coughing, wheezing or any constitutional symptoms. In addition, no history of orthopnea, PND, or edema of lower extremities. She denies any history of intubation or pneumonia. Her last admission was 1 year ago for a broken hip. On arrival to the ED, she was tachycardic, tachypneic, and hypertensive with a blood pressure 161/72. The patient was initially placed on 8 liters simple mask and then subsequently she was put on BiPAP 15/5 with 50% FiO2. ABG was drawn, which showed pH of 7.38, CO2 39, PaO2 75, bicarbonate of 23 and saturation 93%. A chest x-ray in the ED showed diffuse bilateral pulmonary infiltrates with fibrotic changes. No obvious effusions. Her labs are significant for leukocytosis with a WBC of 18.9 and lactic acidosis and lactic acidemia with a lactic acid level of 7.5. In the ED, she was given azithromycin, vancomycin and Zosyn. She was scheduled for a CT chest, abdomen and pelvis ordered by ED. 05/19: Resting in bed on nasal cannula. Objective Vital Signs / I&O: Vital Signs 05/18/18 17:00 05/18/18 18:00 05/18/18 19:00 Temperature Pulse Rate 114 H 113 H 116 H Respiratory Rate 36 H 27 H 30 H Blood Pressure 167/60 H 124/60 100/68 Pulse Oximetry 97 05/18/18 19:58 05/18/18 20:00 05/18/18 21:00 Temperature 98.3 F Pulse Rate 119 H 117 H 116 H Respiratory Rate 38 H 28 H 27 H Blood Pressure 136/83 127/76 Pulse Oximetry 100 100 98 05/18/18 22:00 05/18/18 23:00 05/18/18 23:29 Temperature Pulse Rate 118 H 114 H Respiratory Rate 31 H 30 H Blood Pressure 115/72 115/80 Pulse Oximetry 99 99 97 05/19/18 00:00 05/19/18 01:00 05/19/18 02:00 Temperature 99.0 F Pulse Rate 112 H 119 H 108 H Respiratory Rate 30 H 30 H 29 H Blood Pressure 91/68 L 149/78 H 126/89 Pulse Oximetry 94 L 100 100 05/19/18 03:00 05/19/18 04:00 05/19/18 05:00 Temperature 98.9 F Pulse Rate 105 H 108 H 111 H Respiratory Rate 32 H 31 H 33 H Blood Pressure 131/94 H 121/86 93/69 L Pulse Oximetry 100 96 96 05/19/18 06:00 05/19/18 08:22 05/19/18 08:23 Temperature Pulse Rate 119 H 113 H Respiratory Rate 34 H 22 Blood Pressure 133/75 Pulse Oximetry 96 95 05/19/18 11:54 Temperature Pulse Rate 103 H Respiratory Rate 20 Blood Pressure Pulse Oximetry Intake & Output 05/18/18 05/19/18 05/19/18 18:59 06:59 18:59 Intake Total 600 / 600 707.5 / 707.5 200 / 200 Balance 600 / 600 707.5 / 707.5 200 / 200 Weight 42.5 kg 42 kg Intake: IV 600 / 600 707.5 / 707.5 200 / 200 NS Inj 1,000 ML @ 75 mls/hr IV. 100 / 100 CONT .[id number] MARTY Rx#:[id number] Azithromycin Inj 500 MG In NS 250 / 250 Inj 250 ML @ 250 mls/hr IV.SIG STAT STA Rx#:[id number] Zosyn 4.5 GM Premix 4.5 gm In 100 / 100 200 / 200 100 / 100 100 ml @ 200 mls/hr IV.SIG Q6H MARTY Rx#:[id number] NS Inj 500 ML @ Wide Open IV. 500 / 500 SIG BOLUS MARTY Rx#:[id number] Vancomycin Inj 750 MG In NS Inj 257.5 / 257.5 250 ML @ 250 mls/hr IV.SIG Q24H MARTY Rx#:[id number] Other: # Incontinent Voids 4 Date of Last Bowel Movement 05/18/18 # Incontinent Bowel Movements 1 Weight On Admission 42.5 kg Result Diagrams: 05/19/18 03:31 05/19/18 03:31 Objective Remarks: HEENT/Neuro: No pallor or icterus, tongue moist, DIAN, Awake alert oriented 3 , nonfocal grossly, moving all 4 extremities Neck: No JVD Chest/pulmonary: Good air entry bilaterally, bilateral crackles and rhonchi, no wheezing Cardiovascular: S1-S2 regular no gallop or murmur GI/abdomen: Soft, nontender, bowel sounds present Extremities: Warm bilaterally, no edema Assessment and Plan - Assessment and Plan Plan: IMPRESSION: 1. Acute hypoxemic respiratory insufficiency. 2. Likely exacerbation of pulmonary fibrosis. 3. Leukocytosis, rule out infectious process. 4. Lactic acidemia likely secondary to hypoxemia. 5. Elevated troponin. 6. History of glaucoma. RECOMMENDATIONS: 1. Monitor neuro status closely. Given Ativan for anxiety. 2. Continue with oxygen and maintain sats above 92%. 3. Continue bronchodilators in the form of DuoNeb q.4 plus q.2 p.r.n. for shortness of breath and Symbicort 160/4.5 two puffs b.i.d. 4. Solu-Medrol 60 mg IV q.6 hours. 5. Continue with BiPAP as needed, supplemental O2 via nasal cannula as tolerated. Consult Dr. Vasquez, as the patient is known to him. 6. Monitor heart rate and blood pressure closely and maintain MAP greater than 65 mmHg. Serial lactic acid monitoring until clear. 7. IV fluids. Normal saline at 75 mL an hour. Check BNP level. 8. Follow up on the CT chest. 9. Monitor renal function, ins and outs and electrolyte replacement per protocol. IV fluids as stated above. 10. Keep n.p.o. for now until respiratory status improves and placed on Protonix 40 mg daily for gastrointestinal prophylaxis. 11. Continue broad-spectrum antibiotics, vancomycin, Zosyn and azithromycin. Monitor for signs of infection, which include fever and WBC. Follow up on blood cultures. In addition, we will obtain a sputum culture with Gram stain, Strep pneumoniae, and legionella urinary antigen. A CT abdomen and pelvis was ordered by emergency department for further evaluation of her lactic acidosis. 12. Monitor CBC. 13. Place on sliding scale insulin with Accu-Cheks for glycemic control as the patient will be on intravenous steroids. 14. Monitor troponin q.6 and will obtain 2-D echo to evaluate LV function. We will give aspirin 325 mg p.o. x1 now. 15. Gastrointestinal prophylaxis with Protonix 40 mg daily and deep venous thrombosis prophylaxis with sequential compression devices and heparin subcutaneous. 16. Further recommendations will be based on hospital course.
--- NOTE | 2018-05-19 17:38 | MB ---
cc: Rodrigue Husain MD DATE: 05/19/2018 REASON FOR CONSULTATION: Respiratory failure and pulmonary fibrosis. HISTORY OF PRESENT ILLNESS: The patient is an 87-year-old female who was admitted with increasing weakness, severe hypoxemia requiring a nonrebreathing mask to maintain oxygenation at an acceptable range. The patient does not relate any history. She is quite lethargic. She does open her eyes, however. History is mostly obtained from her record. PAST MEDICAL HISTORY: Glaucoma, hysterectomy, previous hip replacement. SOCIAL HISTORY: Apparently smoked in the past, not at present. Does not drink or use drugs. FAMILY HISTORY: Noncontributory. REVIEW OF SYSTEMS: A 12-point review of systems is as per HPI and past history, otherwise negative. PHYSICAL EXAMINATION: GENERAL: The patient is lethargic, opens eyes. HEENT: Unremarkable. Eyes without icterus. NECK: Without adenopathy, thyroid enlargement. Central trachea. CHEST: A few scattered rhonchi. CARDIAC: PMI not appreciated. S1, S2 audible. No murmur, no rub. ABDOMEN: Lax. Normal bowel sounds. EXTREMITIES: No clubbing, cyanosis or edema. VITAL SIGNS: Temperature 98 degrees Fahrenheit, pulse 90, respirations 18, blood pressure 130/60, oxygen saturation 94% on nonrebreathing mask. LABORATORY DATA: White count 18,000, hemoglobin 14, hematocrit 44. Sodium 143, potassium 4.5, BUN 21, creatinine 0.9. CT angiogram without evidence of pulmonary emboli, pulmonary fibrosis noted. IMPRESSION: 1. Acute respiratory failure. 2. Pulmonary fibrosis. 3. Severe cachexia. PLAN: The patient will be maintained on oxygen therapy to maintain adequate oxygenation. The cause of her hypoxia is likely related to underlying pulmonary fibrosis; however, an acute component, especially infection, may be present. Antibiotic therapy on an empiric basis would be appropriate. Pulmonary toilet and bronchodilator therapy have been initiated and appropriately so. Steroid therapy on an acute basis may be helpful as well. We will follow the patient's course along with you and depending on progress, proceed further. Her prognosis is poor with her advanced age and multiple medical problems. Rodrigue Husain MD WWW/landy Beltran: 05/19/2018, 04:27 PM , 04:37 PM
[2018-05-19] MEDS: Vancomycin Inj 750 MG in Sodium Chlor 0.9% Inj 250 ML IV.SIG SCH (21:39)
[2018-05-20 00:10] LABS: Amorphous Sediment,Urine Occasional /hpf; Bacteria,Urine Rare /hpf; Bilirubin,Urine Negative (Negative); Calcium Oxalate Crystals,Urine Rare /hpf; Clarity,Urine Turbid (Clear); Color,Urine Amber (Yellw/Straw); Glucose,Urine (UA) 150 mg/dL (Negative); Hyaline Casts,Urine 1 /lpf (0-3); Leukocyte Esterase,Urine Negative (Negative); Nitrite,Urine Negative (Negative); Specific Gravity,Urine 1.032 (1.002-1.035); Squamous Epithelial Cell,Urine <1 /hpf (0-5)
[2018-05-20] MEDS: Insulin NovoLIN Regular Correctional Sugar Inj SQ SCH ×6 (01:19→20:27)
[2018-05-20] MEDS: Piperacil/Tazo 4.5 GM Premix 4.5 GM/100 ML BAG IV.SIG SCH ×4 (03:14→20:27)
[2018-05-20] MEDS: Chlorhexidine Gluconate 2% 1 Pack (2 Cloths) TOPICAL SCH (03:14)
[2018-05-20] MEDS: MethylPREDNISolone Sod Succinate Inj 125 MG/2 ML Vial IV.PUSH SCH ×3 (05:38→17:39)
[2018-05-20] MEDS: Pantoprazole Inj 40 MG Vial IV.PUSH SCH (09:15)
[2018-05-20] MEDS: Heparin - SQ 10,000 UNITS/ML Vial SQ SCH ×2 (09:15→20:28)
[2018-05-20] MEDS: Sod Chloride 0.9% Inj 1,000 ML IV.CONT SCH (09:21)
[2018-05-20] MEDS: Senna/Docusate Sodium 8.6/50 MG Tablet PO SCH ×2 (09:21→20:28)
[2018-05-20] MEDS: Azithromycin 250 MG Tablet PO SCH (09:22)
--- NOTE | 2018-05-20 09:40 | P.PNCC ---
Subjective Subjective Remarks/Hospital Course: 05/18: The patient is an 87-year-old female with past medical history of pulmonary fibrosis on 2 liters home oxygen, being followed by Dr. 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 History of anxiety disorder and glaucoma. She presented to [facility] ED via ambulance for generalized weakness. When paramedics arrived, they found her hypoxic with O2 saturation in her 70s. She was placed on a nonrebreather and started to improve her mentation along with her oxygenation. On further history, per daughter, the patient gets short of breath mainly with exertion. She denies any associated symptoms ofchest pain , coughing, wheezing or any constitutional symptoms. In addition, no history of orthopnea, PND, or edema of lower extremities. She denies any history of intubation or pneumonia. Her last admission was 1 year ago for a broken hip. On arrival to the ED, she was tachycardic, tachypneic, and hypertensive with a blood pressure 161/72. The patient was initially placed on 8 liters simple mask and then subsequently she was put on BiPAP 15/5 with 50% FiO2. ABG was drawn, which showed pH of 7.38, CO2 39, PaO2 75, bicarbonate of 23 and saturation 93%. A chest x-ray in the ED showed diffuse bilateral pulmonary infiltrates with fibrotic changes. No obvious effusions. Her labs are significant for leukocytosis with a WBC of 18.9 and lactic acidosis and lactic acidemia with a lactic acid level of 7.5. In the ED, she was given azithromycin , vancomycin and Zosyn. She was scheduled for a CT chest, abdomen and pelvis ordered by ED. 05/19: Resting in bed on nasal cannula. 05/20 Patient is on NRB Objective Vital Signs / I&O: Vital Signs 05/19/18 11:54 05/19/18 17:00 05/19/18 17:32 Temperature Pulse Rate 103 H 120 H 112 H Respiratory Rate 20 28 H 37 H Blood Pressure 109/74 Pulse Oximetry 05/19/18 18:12 05/19/18 19:00 05/19/18 20:00 Temperature 97.8 F 97.8 F Pulse Rate 117 H 112 H 117 H Respiratory Rate 43 H 22 36 H Blood Pressure 143/90 H Pulse Oximetry 94 L 83 L 05/19/18 23:00 05/20/18 00:00 05/20/18 03:29 Temperature 97.8 F Pulse Rate 128 H 128 H Respiratory Rate 30 H 38 H Blood Pressure 157/103 H Pulse Oximetry 92 L 92 L 05/20/18 04:00 05/20/18 07:57 05/20/18 08:25 Temperature 97.8 F Pulse Rate 119 H 127 H Respiratory Rate 32 H 26 H Blood Pressure 155/114 H Pulse Oximetry 93 L 90 L Intake & Output 05/19/18 05/20/18 05/20/18 18:59 06:59 18:59 Intake Total 300 / 300 1700 / 1700 Output Total 450 / 450 Balance 300 / 300 1250 / 1250 Intake: IV 300 / 300 1700 / 1700 NS Inj 1,000 ML @ 75 mls/hr IV. 100 / 100 1000 / 1000 CONT .[id number] [facility] Rx#:[id number] Zosyn 4.5 GM Premix 4.5 gm In 200 / 200 200 / 200 100 ml @ 200 mls/hr IV.SIG Q6H [facility] Rx#:[id number] Vancomycin Inj 750 MG In NS Inj 500 / 500 250 ML @ 250 mls/hr IV.SIG Q24H [facility] Rx#:[id number] Oral 0 / 0 Output: Urine 450 / 450 Other: # Incontinent Voids 4 Date of Last Bowel Movement 05/18/18 05/18/18 # Incontinent Bowel Movements 1 Result Diagrams: 05/20/18 10:40 05/20/18 10:40 Other Results: Laboratory Results - last 12 hr 05/19/18 05/19/18 05/20/18 20:15 22:06 05:35 POC Glucose 141 H 125 H Urine Color Kirsten Urine Clarity Turbid H Urine pH 5.0 Ur Specific Webster 1.032 Urine Protein 30 H Urine Glucose (UA) 150 H Urine Ketones Negative Urine Occult Blood Moderate H Urine Nitrate Negative Urine Bilirubin Negative Urine Urobilinogen Less than 2 Ur Leukocyte Esterase Negative Urine RBC 9 H Urine WBC 4 Ur Squamous Epith Cells <1 Calcium Oxalate Crystal Rare H Amorphous Sediment Occasional H Urine Bacteria Rare H Hyaline Casts 1 Micro UA Comment Culture not ind Ur Microscopic Review Not Reportable Urine Culture Comments Culture not ind 05/20/18 09:20 POC Glucose 126 H Urine Color Urine Clarity Urine pH Ur Specific Webster Urine Protein Urine Glucose (UA) Urine Ketones Urine Occult Blood Urine Nitrate Urine Bilirubin Urine Urobilinogen Ur Leukocyte Esterase Urine RBC Urine WBC Ur Squamous Epith Cells Calcium Oxalate Crystal Amorphous Sediment Urine Bacteria Hyaline Casts Micro UA Comment Ur Microscopic Review Urine Culture Comments Imaging: Chest X-Ray 05/18/18 14:17 CONCLUSION: Fibrotic changes with superimposed bilateral pulmonary infiltrates. Abdomen/Pelvis CT 05/18/18 16:29 CONCLUSION: 1. Moderate amount of stool. 2. Cholelithiasis. 3. Nonobstructing right renal calculi. 4. No acute inflammatory changes are seen. Chest CT 05/18/18 16:29 CONCLUSION: 1. Pulmonary fibrosis. 2. Hilar adenopathy. Objective Remarks: HEENT/Neuro: No pallor or icterus, tongue moist, DIAN, Awake alert oriented 3 , nonfocal grossly, moving all 4 extremities Neck: No JVD Chest/pulmonary: Good air entry bilaterally, bilateral crackles and rhonchi, no wheezing Cardiovascular: S1-S2 regular no gallop or murmur GI/abdomen: Soft, nontender, bowel sounds present Extremities: Warm bilaterally, no edema Assessment and Plan - Assessment and Plan Plan: IMPRESSION: 1. Acute hypoxemic respiratory insufficiency. 2. Likely exacerbation of pulmonary fibrosis. 3. Leukocytosis, rule out infectious process. 4. Lactic acidemia likely secondary to hypoxemia. 5. Elevated troponin. 6. History of glaucoma. Plan Neuro: Monitor neuro status closely Pulm: Continue with oxygen and maintain sats above 92%. Bronchodilators- DuoNeb, Symbicort 160/4.5 two puffs b.i.d. Solu-Medrol 60 mg IV q.6 hours. Pulm is following- Dr. Rodrigue THOMPSON PRN for resp distress CT chest showed pulm fibrosis CV: Monitor HR and BP and maintain MAP >65 mmHg. Check Lactic acid, Echo EF 50-55% d/c IVF. Monitor Trop, ASA 81mg daily : Monitor renal function, ins and outs and electrolyte replacement GI: On Protonix 40 mg daily for GI prophylaxis. ID: Continue with abx, vancomycin, Zosyn and azithromycin. Monitor for signs of infection(fever and WBC) Follow up on blood cultures- NGTD Strep pneumoniae, and legionella urinary antigen pending Heme: Monitor CBC. Endo: SSI with Accu-Cheks for glycemic control GI prophylaxis with Protonix 40 mg daily DVT prophylaxis SCD and heparin subcutaneous. Discussed with patient's daughter prognosis is guarded she agreed for hospice eval. Will sign off and transfer care to [facility] Level 3 .
[2018-05-20] MEDS: Budesonide-Formoterol 160/4.5 MCG 6 GM Inhaler INH SCH ×2 (10:49→20:29)
[2018-05-20 10:56] LABS: Hematocrit 42.1 % (35.0-46.0); Hemoglobin 13.9 gm/dL (11.6-15.3); Mean Corpuscular Hemoglobin 31.6 pg (27.0-34.0); Mean Corpuscular Volume 95.6 fL (80.0-100.0); Mean Platelet Volume 8.4 fL (7.0-11.0); Platelet Count 190 th/mm3 (150-450); Red Cell Distribution Width 13.1 % (11.6-17.2)
[2018-05-20 11:20] LABS: Albumin 2.8 g/dL (3.4-5.0); Anion Gap 10 meq/L (5-15); Aspartate Aminotransferase 83 U/L (15-37); Calcium 9.2 mg/dL (8.5-10.1); Carbon Dioxide 24.6 meq/L (21.0-32.0); Chloride 115 meq/L (98-107); Glomerular Filtration Rate Greater Than 89 mL/min (>89); Glucose,Random 141 mg/dL (74-106); Magnesium 2.4 mg/dL (1.5-2.5); Potassium 3.4 meq/L (3.5-5.1); Sodium 150 meq/L (136-145)
[2018-05-20 11:38] LABS: Alanine Aminotransferase 48 U/L (10-53); Alkaline Phosphatase 108 U/L (45-117); Blood Urea Nitrogen 18 mg/dL (7-18); Total Protein 7.6 g/dL (6.4-8.2)
[2018-05-20 11:43] LABS: Troponin I 0.84 ng/mL (0.02-0.05)
[2018-05-20] MEDS ORDERED: Potassium Chloride 25 MEQ Effervescent Tablet PO PRN (11:46)
[2018-05-20] MEDS ORDERED: Magnesium Sulfate Inj 2 GM in Sodium Chlor 0.9% Inj 96 ML IV.SIG PRN (11:46)
[2018-05-20] MEDS ORDERED: Potassium Chlor 40 mEq Premix 40 MEQ/100 ML PIGGYBACK IV.SIG PRN ×2 (11:46)
[2018-05-20] MEDS ORDERED: Potassium Phosphate Inj 30 MMOL in Sodium Chlor 0.9% Inj 250 ML IV.SIG PRN (11:46)
[2018-05-20] MEDS ORDERED: Magnesium Oxide 400 MG Tablet PO PRN (11:46)
[2018-05-20] MEDS ORDERED: Magnesium Sulfate Inj 4 GM in Sodium Chlor 0.9% Inj 92 ML IV.SIG PRN (11:46)
[2018-05-20] MEDS ORDERED: Potassium Chlor 20 mEq Premix 20 MEQ/100 ML PIGGYBACK IV.SIG PRN ×2 (11:46)
[2018-05-20] MEDS ORDERED: Sodium Phosphate Inj 30 MMOL in Sodium Chlor 0.9% Inj 250 ML IV.SIG PRN (11:46)
[2018-05-20] MEDS ORDERED: Potassium Phosphate 500 MG Soluble Tablet PO PRN ×2 (11:46)
[2018-05-20] MEDS: Potassium Chlor 20 mEq Premix 20 MEQ/100 ML PIGGYBACK IV.SIG SCH ×2 (16:32→18:37)
[2018-05-20] MEDS: Vancomycin Inj 750 MG in Sodium Chlor 0.9% Inj 250 ML IV.SIG SCH (21:39)
[2018-05-21] MEDS: Insulin NovoLIN Regular Correctional Sugar Inj SQ SCH ×5 (00:07→20:54)
[2018-05-21] MEDS: MethylPREDNISolone Sod Succinate Inj 125 MG/2 ML Vial IV.PUSH SCH ×4 (00:07→17:42)
[2018-05-21] MEDS: Piperacil/Tazo 4.5 GM Premix 4.5 GM/100 ML BAG IV.SIG SCH ×4 (02:25→20:56)
[2018-05-21 04:33] LABS: Glomerular Filtration Rate Greater Than 89 mL/min (>89)
[2018-05-21] MEDS: Chlorhexidine Gluconate 2% 1 Pack (2 Cloths) TOPICAL SCH (05:02)
[2018-05-21] MEDS: Pantoprazole Inj 40 MG Vial IV.PUSH SCH (09:37)
--- NOTE | 2018-05-21 14:42 | P.PNIM ---
Subjective Interval history: Patient is no verbal. High oxygen dependence remains. 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 Family considering hospice, but no final choice is yet made. Physical Exam Vital signs: Vital Signs 05/20/18 15:00 05/20/18 15:45 05/20/18 16:00 Temperature 97.8 F Pulse Rate 120 H 109 H 121 H Respiratory Rate 35 H 24 65 H Blood Pressure 162/109 H 180/87 H Pulse Oximetry 98 96 05/20/18 17:00 05/20/18 18:00 05/20/18 18:18 Temperature Pulse Rate 120 H 124 H 121 H Respiratory Rate 64 H 53 H 37 H Blood Pressure 161/100 H 178/111 H 176/100 H Pulse Oximetry 97 94 L 92 L 05/20/18 19:00 05/20/18 20:00 05/20/18 20:02 Temperature 97.7 F Pulse Rate 120 H 118 H 116 H Respiratory Rate 24 24 Blood Pressure 145/82 H Pulse Oximetry 95 94 L 05/20/18 20:03 05/20/18 21:00 05/20/18 22:00 Temperature Pulse Rate 128 H 125 H Respiratory Rate Blood Pressure Pulse Oximetry 94 L 05/20/18 23:32 05/20/18 23:33 05/21/18 00:00 Temperature 96.0 F L Pulse Rate 106 H 129 H Respiratory Rate 23 24 Blood Pressure 134/83 Pulse Oximetry 92 L 95 05/21/18 02:00 05/21/18 03:53 05/21/18 04:00 Temperature 96.2 F L Pulse Rate 107 H 125 H Respiratory Rate 21 24 Blood Pressure 106/71 Pulse Oximetry 95 93 L 100 05/21/18 07:26 05/21/18 08:00 Temperature Pulse Rate 110 H Respiratory Rate 35 H Blood Pressure Pulse Oximetry 98 Intake & Output 05/20/18 05/21/18 05/21/18 18:59 06:59 18:59 Intake Total 950 / 950 100 / 100 Output Total 350 / 350 1000 / 1000 Balance 600 / 600 -900 / -900 Weight 42 kg Intake: IV 950 / 950 100 / 100 NS Inj 1,000 ML @ 75 mls/hr IV. 650 / 650 CONT .[id number] [facility] Rx#:[id number] Zosyn 4.5 GM Premix 4.5 gm In 100 / 100 100 / 100 100 ml @ 200 mls/hr IV.SIG Q6H [facility] Rx#:[id number] KCl 20 mEq Premix Inj 20 meq In 100 / 100 100 ml @ 50 mls/hr IV.SIG Q2H [facility] Rx#:[id number] Oral 0 / 0 Output: Urine 350 / 350 1000 / 1000 Other: Date of Last Bowel Movement 05/18/18 05/18/18 Narrative: GENERAL: NAD, A&Ox0, frail HEAD: Normocephalic. NECK: Supple, trachea midline. No lymphadenopathy. EYES: No scleral icterus. No injection or drainage. CARDIOVASCULAR: Regular rate and rhythm without murmurs, gallops, or rubs. RESPIRATORY: Breath sounds equal bilaterally. No accessory muscle use. GASTROINTESTINAL: Abdomen soft, non-tender, nondistended. MUSCULOSKELETAL: No cyanosis, or edema. SKIN: Warm and dry. NEURO: No focal neurological deficits. Results - Labs CBC & Chem 7: 05/20/18 10:40 05/21/18 03:07 Laboratory Results - last 24 hr 05/20/18 05/20/18 05/20/18 16:37 19:57 23:39 Creatinine Estimated GFR POC Glucose 121 H 137 H 127 H 05/21/18 05/21/18 03:07 04:26 Creatinine 0.54 Estimated GFR Greater than 89 POC Glucose 123 H Microbiology 05/18/18 14:45 Blood - Peripheral Aerobic Blood Culture - Preliminary No growth in 3 days 05/18/18 14:45 Blood - Peripheral Anaerobic Blood Culture - Preliminary No growth in 3 days 05/18/18 14:30 Blood - Peripheral Aerobic Blood Culture - Preliminary No growth in 3 days 05/18/18 14:30 Blood - Peripheral Anaerobic Blood Culture - Preliminary No growth in 3 days 05/19/18 20:15 Urine - Catheterized Urine Streptococcus pneumoniae Antigen ( M - Final Presumptive negative for streptococcus pneumoniae antigen, suggesting no current or recent infection. Infection due to Streptococcus pneumoniae cannot be ruled out since the antigen present in the sample may be below the detection limit of the test. 05/19/18 20:15 Urine - Catheterized Urine Legionella Antigen - Final Presumptive negative for Legionella pneumophila serogroup 1 antigen in urine, suggesting no recent or recurrent infection. Infection due to Legionella cannot be ruled out since other serogroups and species may cause disease, antigen may not be present in urine in early infection, and the level of antigen present in the urine may be below the detection limit of the test. Assessment and Plan - Plan 87 year old female admitted for respiratory failure in setting of underlying pulmonary fibrosis Acute hypoxemic respiratory insufficiency. Likely exacerbation of pulmonary fibrosis. Leukocytosis Continue oxygen Continue pulse ox monitoring Systemic Steroids PRN Albuterol Duonebs Symbacort Pulmonology following Off Bipap for now Vancomycin, Zosyn, and Azithromycin continued Lactic acidemia Elevated troponin. secondary to hypoxemia. follow clinically for now History of glaucoma. Continue baseline treatments DVT Prophylaxis Heparin Discharge Planning Family contemplating hospice
--- NOTE | 2018-05-21 15:56 | P.PN ---
Subjective Interval history: obtunded on NRM Physical Exam Vital signs: Vital Signs 05/20/18 16:00 05/20/18 17:00 05/20/18 18:00 Temperature 97.8 F Pulse Rate 121 H 120 H 124 H Respiratory Rate 65 H 64 H 53 H Blood Pressure 180/87 H 161/100 H 178/111 H Pulse Oximetry 96 97 94 L 05/20/18 18:18 05/20/18 19:00 05/20/18 20:00 Temperature 97.7 F Pulse Rate 121 H 120 H 118 H Respiratory Rate 37 H 24 Blood Pressure 176/100 H 145/82 H Pulse Oximetry 92 L 95 94 L 05/20/18 20:02 05/20/18 20:03 05/20/18 21:00 Temperature Pulse Rate 116 H 128 H Respiratory Rate 24 Blood Pressure Pulse Oximetry 94 L 05/20/18 22:00 05/20/18 23:32 05/20/18 23:33 Temperature Pulse Rate 125 H 106 H Respiratory Rate 23 Blood Pressure Pulse Oximetry 92 L 05/21/18 00:00 05/21/18 02:00 05/21/18 03:53 Temperature 96.0 F L Pulse Rate 129 H 107 H Respiratory Rate 24 21 Blood Pressure 134/83 Pulse Oximetry 95 95 93 L 05/21/18 04:00 05/21/18 07:26 05/21/18 08:00 Temperature 96.2 F L Pulse Rate 125 H 110 H 88 Respiratory Rate 24 35 H 21 Blood Pressure 106/71 Pulse Oximetry 100 98 Intake & Output 05/20/18 05/21/18 05/21/18 18:59 06:59 18:59 Intake Total 950 / 950 100 / 100 Output Total 350 / 350 1000 / 1000 Balance 600 / 600 -900 / -900 Weight 42 kg Intake: IV 950 / 950 100 / 100 NS Inj 1,000 ML @ 75 mls/hr IV. 650 / 650 CONT .[id number] [facility] Rx#:[id number] Zosyn 4.5 GM Premix 4.5 gm In 100 / 100 100 / 100 100 ml @ 200 mls/hr IV.SIG Q6H [facility] Rx#:[id number] KCl 20 mEq Premix Inj 20 meq In 100 / 100 100 ml @ 50 mls/hr IV.SIG Q2H [facility] Rx#:[id number] Oral 0 / 0 Output: Urine 350 / 350 1000 / 1000 Other: Date of Last Bowel Movement 05/18/18 05/18/18 05/18/18 Narrative: GENERAL: NAD, A&Ox0, frail HEAD: Normocephalic. NECK: Supple, trachea midline. No lymphadenopathy. EYES: No scleral icterus. No injection or drainage. CARDIOVASCULAR: Regular rate and rhythm without murmurs, gallops, or rubs. RESPIRATORY: Breath sounds equal bilaterally. No accessory muscle use. GASTROINTESTINAL: Abdomen soft, non-tender, nondistended. MUSCULOSKELETAL: No cyanosis, or edema. SKIN: Warm and dry. NEURO: No focal neurological deficits. Results - Labs CBC & Chem 7: 05/20/18 10:40 05/21/18 03:07 Laboratory Results - last 24 hr 05/20/18 05/20/18 05/20/18 16:37 19:57 23:39 Creatinine Estimated GFR POC Glucose 121 H 137 H 127 H 05/21/18 05/21/18 05/21/18 03:07 04:26 14:45 Creatinine 0.54 Estimated GFR Greater than 89 POC Glucose 123 H 110 Microbiology 05/18/18 14:45 Blood - Peripheral Aerobic Blood Culture - Preliminary No growth in 3 days 05/18/18 14:45 Blood - Peripheral Anaerobic Blood Culture - Preliminary No growth in 3 days 05/18/18 14:30 Blood - Peripheral Aerobic Blood Culture - Preliminary No growth in 3 days 05/18/18 14:30 Blood - Peripheral Anaerobic Blood Culture - Preliminary No growth in 3 days 05/19/18 20:15 Urine - Catheterized Urine Streptococcus pneumoniae Antigen ( M - Final Presumptive negative for streptococcus pneumoniae antigen, suggesting no current or recent infection. Infection due to Streptococcus pneumoniae cannot be ruled out since the antigen present in the sample may be below the detection limit of the test. 05/19/18 20:15 Urine - Catheterized Urine Legionella Antigen - Final Presumptive negative for Legionella pneumophila serogroup 1 antigen in urine, suggesting no recent or recurrent infection. Infection due to Legionella cannot be ruled out since other serogroups and species may cause disease, antigen may not be present in urine in early infection, and the level of antigen present in the urine may be below the detection limit of the test. Assessment and Plan - Plan RESPIRATORY FAILURE PULM FIBROSIS SEPSIS ALTERED MENTAL STATUS PLAN O2 NEEDED ANTBX OUTLOOK GRAVE
[2018-05-21] MEDS: Budesonide-Formoterol 160/4.5 MCG 6 GM Inhaler INH SCH ×2 (17:37→20:56)
[2018-05-21] MEDS: Heparin - SQ 10,000 UNITS/ML Vial SQ SCH ×2 (17:37→20:55)
[2018-05-21] MEDS: Senna/Docusate Sodium 8.6/50 MG Tablet PO SCH ×2 (17:37→20:55)
[2018-05-21] MEDS: Azithromycin 250 MG Tablet PO SCH (17:38)
[2018-05-21] MEDS ORDERED: Pharmacy Ordered Lab Info OTHER ONE (21:45)
[2018-05-21] MEDS: Vancomycin Inj 750 MG in Sodium Chlor 0.9% Inj 250 ML IV.SIG SCH (23:22)
[2018-05-22] MEDS: Insulin NovoLIN Regular Correctional Sugar Inj SQ SCH ×3 (00:15→09:07)
[2018-05-22] MEDS: MethylPREDNISolone Sod Succinate Inj 125 MG/2 ML Vial IV.PUSH SCH ×3 (00:15→14:09)
[2018-05-22] MEDS: Chlorhexidine Gluconate 2% 1 Pack (2 Cloths) TOPICAL SCH (03:35)
[2018-05-22] MEDS: Piperacil/Tazo 4.5 GM Premix 4.5 GM/100 ML BAG IV.SIG SCH ×2 (03:35→09:13)
[2018-05-22] MEDS ORDERED: Morphine Inj 4 MG/ML Vial IV.PUSH PRN (08:21)
[2018-05-22] MEDS: Morphine Inj 4 MG/ML Vial IV.PUSH PRN ×2 (08:25→14:09)
[2018-05-22] MEDS: Pantoprazole Inj 40 MG Vial IV.PUSH SCH (09:10)
[2018-05-22] MEDS: Senna/Docusate Sodium 8.6/50 MG Tablet PO SCH (09:11)
[2018-05-22] MEDS: Budesonide-Formoterol 160/4.5 MCG 6 GM Inhaler INH SCH (09:11)
[2018-05-22] MEDS: Heparin - SQ 10,000 UNITS/ML Vial SQ SCH (09:11)
[2018-05-22] MEDS: Azithromycin 250 MG Tablet PO SCH (09:12)
--- NOTE | 2018-05-22 09:20 | P.DS ---
Date of admission: 05/18/18 16:31 Primary care physician: Torsten Vasquez MD Brief History from admission: Patient admitted secondary to acute respiratory failure, see H&P by critical care medicine. DS: Summary Hospital Course: Mrs. Amin is an 87-year-old female. She has had recurrent visits to the hospital secondary to her pulmonary fibrosis and age. She came in the hospital in acute respiratory failure. She is currently stabilized somewhat with a high amount of oxygen and a nonrebreather. It is unlikely that she recovers from this recent exacerbation. We have been watching her for 4 days and she has no improvements. Daughter has been considering hospice and today elects to choose hospice for further treatment. Patient has relatively low oxygen despite high amounts of oxygen with nonrebreather. Patient will be discharged to hospice when inpatient hospice bed available. - Time Spent with Patient Total time spent providing and/or coordinating discharge services: Less than 30 minutes Exam Vital signs: Vital Signs 05/21/18 12:00 05/21/18 16:00 05/21/18 20:00 Temperature 97.1 F L 96.6 F L Pulse Rate 115 H 111 H 112 H Respiratory Rate 23 50 H 35 H Blood Pressure 191/84 H 130/90 109/76 Pulse Oximetry 94 L 88 L 05/21/18 20:38 05/22/18 00:00 05/22/18 04:00 Temperature Pulse Rate 115 H 118 H 116 H Respiratory Rate 22 40 H 33 H Blood Pressure 108/62 112/71 Pulse Oximetry 98 79 L 75 L 05/22/18 04:06 Temperature Pulse Rate 117 H Respiratory Rate 30 H Blood Pressure Pulse Oximetry Intake & Output 05/21/18 05/22/18 05/22/18 18:59 06:59 18:59 Intake Total 100 / 100 1050 / 1050 7.5 / 7.5 Output Total 100 / 100 Balance 100 / 100 950 / 950 7.5 / 7.5 Weight 42.5 kg Intake: IV 100 / 100 1050 / 1050 7.5 / 7.5 Zosyn 4.5 GM Premix 4.5 gm In 100 / 100 300 / 300 100 ml @ 200 mls/hr IV.SIG Q6H [facility] Rx#:[id number] Vancomycin Inj 750 MG In NS Inj 750 / 750 7.5 / 7.5 250 ML @ 250 mls/hr IV.SIG Q24H [facility] Rx#:[id number] Oral 0 / 0 0 / 0 Output: Urine 100 / 100 Other: Post Void Residual 250 Date of Last Bowel Movement 05/21/18 05/18/18 Results Procedures completed during hospitalization: none Labs on day of discharge: Labs from last 24 hours 05/22/18 05/22/18 05/21/18 03:34 00:14 22:20 POC Glucose 110 110 Vancomycin Trough 12.0 H 05/21/18 05/21/18 20:54 14:45 POC Glucose 91 110 Vancomycin Trough Preliminary micro results at discharge 05/18/18 14:45 Aerobic Blood Culture - Preliminary Blood - Peripheral No growth in 3 days Anaerobic Blood Culture - Preliminary No growth in 3 days 05/18/18 14:30 Aerobic Blood Culture - Preliminary Blood - Peripheral No growth in 3 days Anaerobic Blood Culture - Preliminary No growth in 3 days - Impressions ITS Impressions Chest X-Ray 05/18/18 14:17 CONCLUSION: Fibrotic changes with superimposed bilateral pulmonary infiltrates. Abdomen/Pelvis CT 05/18/18 16:29 CONCLUSION: 1. Moderate amount of stool. 2. Cholelithiasis. 3. Nonobstructing right renal calculi. 4. No acute inflammatory changes are seen. Chest CT 05/18/18 16:29 CONCLUSION: 1. Pulmonary fibrosis. 2. Hilar adenopathy. Discharge Plan - Discharge Disposition Patient Disposition: [facility] Hospice/Med Facility - Discharge Condition Condition: Serious - Discharge Order Discharge Orders: Discharge Order (Routine); Ordered 05/22/18 Ordered By: Tahir Gomez - Discharge Details Anticipated Discharge Date: 05/22/18 - Physicians Team Primary Care Provider: Torsten Vasquez Attending Provider: Tahir Gomez Other Providers: Rodrigue Husain MD ; [facility],Mindie
[2018-05-22 12:59] VITALS: BP 118/63; PULSE 112; RESP 29; TEMP 97.1; O2SAT 92
== END 2018-05-22 14:25 | disposition hospice, inpatient (51) ==
LOC: NEPC 14:07 → NEDA 16:31 → HIMC 18:25
PROVIDERS: ADMIT Hospitalist; ATTEND Hospitalist